=== PATIENT | female | born 1960 | race Caucasian/White ===

== ENCOUNTER 2020-05-07 13:30 | Outpatient (REF) | payer OTHER, SELFPAY ==
--- NOTE | 2020-05-07 13:38 | CT_ITS ---
EXAMINATION: CT SINUS WITHOUT CONTRAST CLINICAL INFORMATION: Chronic rhinitis. COMPARISON: None TECHNIQUE: 1.5 mm thin axial and reformatted 1.5 mm thin sagittal and coronal images of sinuses were obtained without contrast. This CT examination was performed using dose optimization techniques as appropriate, variously including the following: *Automated exposure control *Adjustment of mA and/or kV according to patient size (this includes techniques or standardized protocols for targeted exams where dose is matched to indication/reason for exam; i.e. extremities or head) *Use of iterative reconstruction technique DLP: 151 mGy-cm FINDINGS: FRONTAL SINUSES AND DRAINAGE PATHWAYS: Normal. MAXILLARY SINUSES AND DRAINAGE PATHWAYS: There is moderate opacification of small but entire left maxillary sinus from mucoperiosteal thickening. The ostiomeatal complex is partially obstructed. Mild mucoperiosteal thickening right maxillary sinus seen. The right ostiomeatal complex is widely patent. ETHMOID SINUSES: Normal. The ethmoid roofs are symmetric, with olfactory fossa depth of 0.2 cm on the right and 0.3 cm on the left. SPHENOID SINUSES AND DRAINAGE PATHWAYS: There is a small polyp or retention cyst right sphenoid sinus. The left sphenoid sinuses are well aerated. The drainage pathways are widely patent. The carotid canals are covered by bone. NASAL CAVITY/NASOPHARYNX: The nasal cavity is clear. There is mild nasal septal deviation/spurring to the left. The nasopharynx is symmetric. ADDITIONAL RELEVANT FINDINGS: No periapical disease is seen. The TMJs articulate normally. The orbits and skull base soft tissues are unremarkable. The middle ear cavities and mastoid air cells are clear. Limited evaluation demonstrates no acute intracranial findings. CT/CT sinus wo con IMPRESSION: Moderate opacification of small left maxillary sinus. Mild opacification of right maxillary sinus. There is a small polyp or retention cyst right sphenoid sinus. Mild deviation of the nasal septum to the left.
== END 2020-05-07 13:31 | disposition home or self-care (01) ==
LOC: HO.CT 13:30
PROVIDERS: PCP Internal Medicine; Visit Provider Internal Medicine
DX: J31.0 Chronic rhinitis (principal)
CPT/HCPCS: 70486

== ENCOUNTER 2020-08-26 09:55 | Outpatient (REF) | payer OTHER, SELFPAY ==
[2020-08-26 10:53] LABS: COVID-19 Test Negative (Negative)
== END 2020-08-26 09:56 | disposition home or self-care (01) ==
LOC: HO.LAB 09:55
PROVIDERS: Visit Provider Internal Medicine
DX: Z20.822 Contact with and (suspected) exposure to COVID-19 (principal)
CPT/HCPCS: 36415; 87635; C9803

== ENCOUNTER 2020-09-12 14:53 | Outpatient (REF) | payer OTHER, SELFPAY ==
[2020-09-12 15:46] LABS: MANUAL DIFF FLAG NO
[2020-09-12 15:55] LABS: Basophils Absolute Auto 0.1 X10*3/uL (0.0-0.2); Basophils Percent Auto 0.8 % (0-2); Eosinophils Absolute Auto 0.4 X10*3/uL (0.0-0.4); Eosinophils Percent Auto 4.1 % (0-4); Hematocrit 45.3 % (37-47); Hemoglobin 14.8 g/dl (12.0-16.0); Imm Gran Abs Auto 0.02 X10*3/uL (0.00-0.03); Imm Gran Pct Auto 0.2 % (0.0-0.4); Lymphocytes Absolute Auto 3.9 X10*3/uL (1.2-4.9); Mean Corpuscular HGB Conc 32.7 g/dl (31.0-35.0); Mean Corpuscular Hemoglobin 29.7 pg (27.0-33.0); Mean Platelet Volume 9.6 fL (9.4-12.3); Monocytes Absolute Auto 0.7 X10*3/uL (0.1-1.2); Monocytes Percent Auto 8.1 % (2-11); Neutrophils Percent Auto 43.8 % (45-73); Platelet Count 322 X10*3/uL (160-400); Red Blood Count 4.98 X10*6/uL (4.20-5.50); Red Cell Distribution Width 12.5 % (11.0-16.0)
[2020-09-12 16:20] LABS: Alanine Aminotransferase 25 U/L (0-31); Albumin Level 4.5 g/dL (3.5-5.0); Alkaline Phosphatase 59 U/L (39-117); Amylase 28 U/L (28-100); Anion Gap 14 (12-20); Aspartate Amino Transferase 20 U/L (5-31); Bilirubin Total 0.4 mg/dL (0.0-1.0); Blood Urea Nitrogen 16 mg/dL (9-16); Calcium 9.4 mg/dL (8.4-10.2); Carbon Dioxide 26 mmol/L (22-29); Chloride 103 mmol/L (96-108); Estimated Glomerular Filt Rate > 60; Glucose Random 91 mg/dL (60-115); Lipase 29 U/L (8-78); Potassium 4.2 mmol/L (3.3-5.1); Sodium 139 mmol/L (135-145); Total Protein 8.3 g/dL (6.5-8.0)
[2020-09-12 16:39] LABS: TSH reflex Free T4 1.29 uIU/mL (0.32-4.0)
== END 2020-09-12 14:54 | disposition home or self-care (01) ==
LOC: HO.LAB 14:53
PROVIDERS: PCP Internal Medicine; Visit Provider Nurse Practitioner Family
DX: R10.30 Lower abdominal pain, unspecified (principal); R14.0 Abdominal distension (gaseous)
CPT/HCPCS: 36415; 80053; 82150; 83690; 84443; 85025

== ENCOUNTER 2020-09-13 14:34 | Outpatient (REF) | payer OTHER, SELFPAY ==
--- NOTE | ~2020-09-13 | XR_ITS ---
EXAMINATION: XR ABDOMEN KUB CLINICAL INDICATION: Lower abdominal pain COMPARISON: None TECHNIQUE: Two views of the abdomen. FINDINGS: The bowel gas pattern is normal with no evidence of ileus or obstruction. Small pelvic calcifications, probable phleboliths. Lung bases are clear. No acute osseous abnormality. The bones are unremarkable. XR/XR KUB IMPRESSION: Nonobstructive bowel gas pattern.
== END 2020-09-13 14:35 | disposition home or self-care (01) ==
LOC: HO.HMGCX 14:34
PROVIDERS: PCP Internal Medicine; Visit Provider Hospitalist
DX: R10.30 Lower abdominal pain, unspecified (principal)
CPT/HCPCS: 74018

== ENCOUNTER 2020-09-17 08:55 | Outpatient (REF) | payer OTHER, SELFPAY | END 2020-09-17 08:56 | disposition home or self-care (01) | LOC: HO.CT 08:55 | PROVIDERS: Visit Provider Nurse Practitioner Family | DX: Z13.89 Encounter for screening for other disorder (principal) ==

== ENCOUNTER 2021-01-01 14:53 | Outpatient (REF) | payer OTHER, SELFPAY ==
[2021-01-01 16:30] LABS: MANUAL DIFF FLAG NO
[2021-01-01 16:37] LABS: Basophils Absolute Auto 0.1 X10*3/uL (0.0-0.2); Basophils Percent Auto 0.8 % (0-2); Eosinophils Absolute Auto 0.3 X10*3/uL (0.0-0.4); Eosinophils Percent Auto 3.6 % (0-4); Hematocrit 43.1 % (37-47); Hemoglobin 14.1 g/dl (12.0-16.0); Imm Gran Abs Auto 0.03 X10*3/uL (0.00-0.03); Imm Gran Pct Auto 0.3 % (0.0-0.4); Lymphocytes Percent Auto 34.1 % (20-40); Mean Corpuscular HGB Conc 32.7 g/dl (31.0-35.0); Mean Corpuscular Hemoglobin 29.6 pg (27.0-33.0); Mean Corpuscular Volume 90.4 fL (80-98); Mean Platelet Volume 9.8 fL (9.4-12.3); Monocytes Absolute Auto 0.7 X10*3/uL (0.1-1.2); Monocytes Percent Auto 7.6 % (2-11); Neutrophils Absolute Auto 4.7 X10*3/uL (2.0-8.3); Neutrophils Percent Auto 53.6 % (45-73); Platelet Count 323 X10*3/uL (160-400); Red Blood Count 4.77 X10*6/uL (4.20-5.50); Red Cell Distribution Width 12.7 % (11.0-16.0); White Blood Count 8.8 X10*3/uL (4.8-10.8)
[2021-01-01 16:40] LABS: Glucose Urine UA NEG (NEG); Leukocyte Esterase Urine NEG (NEG); Nitrite Urine NEG (NEG); Specific Gravity - Urine 1.015 (1.005-1.025); Urine Blood 1+ (NEG); Urine Ketones NEG (NEG); Urine Protein NEG (NEG-TRACE)
[2021-01-01 16:44] LABS: Appearance Urine CLEAR; Color Urine YELLOW
[2021-01-01 16:55] LABS: Bacteria Urine 1+ /LPF; Squamous Epithelial Cell Urine 3+ /LPF; WBC Urine 0-2 /HPF (0-4)
[2021-01-01 16:58] LABS: Estimated Average Glucose 108 mg/dL; Hemoglobin A1c % 5.4 %
[2021-01-01 17:00] LABS: Alanine Aminotransferase 22 U/L (0-31); Albumin Level 4.2 g/dL (3.5-5.0); Alkaline Phosphatase 54 U/L (39-117); Anion Gap 13 (12-20); Aspartate Amino Transferase 18 U/L (5-31); Bilirubin Total 0.4 mg/dL (0.0-1.0); Blood Urea Nitrogen 15 mg/dL (9-16); Calcium 9.2 mg/dL (8.4-10.2); Carbon Dioxide 26 mmol/L (22-29); Chloride 105 mmol/L (96-108); Cholesterol 205 mg/dL; Estimated Glomerular Filt Rate > 60; Glucose Random 107 mg/dL (60-115); HDL Cholesterol 52 mg/dL; Iron 66 mcg/dL (30-160); LDL Cholesterol Calculated 121 mg/dl; Percent Iron Saturation 22 % (15-50); Potassium 4.1 mmol/L (3.3-5.1); Sodium 140 mmol/L (135-145); Total Iron Binding Capacity 303 mcg/dL (228-428); Total Protein 7.5 g/dL (6.5-8.0); Triglycerides 161 mg/dL; Unsaturated Iron Binding 237 ug/dL
[2021-01-01 17:21] LABS: Ferritin 157 ng/mL (10-250); Free T4 (Free Thyroxine) 1.02 ng/dL (0.71-1.85); Thyroid Stimulating Hormone 1.63 uIU/mL (0.32-4.0); Vitamin D 25-OH Total 72.5 ng/mL (>30)
[2021-01-01 18:34] LABS: Folate > 20.0 ng/mL (> or = 4.0); Vitamin B12 977 pg/mL (200-900)
[2021-01-02 17:56] LABS: Triiodothyronine T3 Free 3.4 pg/mL (2.3-4.2)
== END 2021-01-01 14:54 | disposition home or self-care (01) ==
LOC: HO.HMGCLDS 14:53
PROVIDERS: PCP Internal Medicine; Visit Provider Internal Medicine
DX: Z13.89 Encounter for screening for other disorder (principal)
CPT/HCPCS: 36415; 80053; 80061; 81001; 82306; 82607; 82728; 82746; 83036; 83540; 84439; 84443; 84481; 85025

== ENCOUNTER 2021-04-08 13:55 | Outpatient (REF) | payer OTHER, SELFPAY ==
[2021-04-08 15:26] LABS: Influenza A PCR NEGATIVE (Negative); Influenza B PCR NEGATIVE (Negative); Resp Syncy Virus RNA Qual PCR NEGATIVE (Negative); SARS COV2 PCR INHOUSE NEGATIVE (Negative)
== END 2021-04-08 13:56 | disposition home or self-care (01) ==
LOC: HO.LNP 13:55
PROVIDERS: Visit Provider Internal Medicine
DX: Z20.822 Contact with and (suspected) exposure to COVID-19 (principal); R43.9 Unspecified disturbances of smell and taste
CPT/HCPCS: 0241U

== ENCOUNTER 2021-05-22 08:55 | Outpatient (REF) | payer OTHER, SELFPAY ==
[2021-05-22 09:16] LABS: MANUAL DIFF FLAG NO
[2021-05-22 10:00] LABS: Basophils Absolute Auto 0.1 X10*3/uL (0.0-0.2); Basophils Percent Auto 0.9 % (0-2); Eosinophils Absolute Auto 0.3 X10*3/uL (0.0-0.4); Eosinophils Percent Auto 4.4 % (0-4); Hematocrit 44.8 % (37.0-47.0); Hemoglobin 14.7 g/dl (12.0-16.0); Imm Gran Abs Auto 0.02 X10*3/uL (0.00-0.03); Imm Gran Pct Auto 0.3 % (0.0-0.4); Lymphocytes Percent Auto 39.4 % (20-40); Mean Corpuscular HGB Conc 32.8 g/dl (31.0-35.0); Mean Corpuscular Hemoglobin 29.6 pg (27.0-33.0); Mean Corpuscular Volume 90.3 fL (80.0-98.0); Mean Platelet Volume 9.4 fL (9.4-12.3); Monocytes Absolute Auto 0.6 X10*3/uL (0.1-1.2); Monocytes Percent Auto 7.6 % (2-11); Neutrophils Absolute Auto 3.6 x10*3/uL (2.0-8.3); Neutrophils Percent Auto 47.4 % (45-73); Platelet Count 310 X10*3/uL (160-400); Red Blood Count 4.96 X10*6/uL (4.20-5.50); Red Cell Distribution Width 12.8 % (11.0-16.0); White Blood Count 7.5 X10*3/uL (4.8-10.8)
[2021-05-22 10:24] LABS: Alanine Aminotransferase 35 U/L (0-31); Albumin Level 4.4 g/dL (3.5-5.0); Alkaline Phosphatase 54 U/L (39-117); Anion Gap 12 (12-20); Aspartate Amino Transferase 19 U/L (5-31); Bilirubin Total 0.6 mg/dL (0.0-1.0); Blood Urea Nitrogen 17 mg/dL (9-16); Calcium 9.6 mg/dL (8.4-10.2); Carbon Dioxide 29 mmol/L (22-29); Chloride 103 mmol/L (96-108); Cholesterol 249 mg/dL; Estimated Glomerular Filt Rate > 60; Glucose Random 99 mg/dL (60-115); HDL Cholesterol 57 mg/dL; LDL Cholesterol Calculated 169 mg/dl; Potassium 4.6 mmol/L (3.3-5.1); Sodium 139 mmol/L (135-145); Triglycerides 118 mg/dL
[2021-05-22 10:48] LABS: Free T4 (Free Thyroxine) 0.99 ng/dL (0.71-1.85); Thyroid Stimulating Hormone 1.62 uIU/mL (0.32-4.0); Vitamin D 25-OH Total 41.7 ng/mL (>30)
[2021-05-22 10:55] LABS: Appearance Urine CLEAR; Color Urine YELLOW; Glucose Urine UA NEG (NEG); Leukocyte Esterase Urine NEG (NEG); Nitrite Urine NEG (NEG); PH 6.5 (5.0-8.0); Urine Blood NEG (NEG); Urine Ketones NEG (NEG); Urine Protein NEG (NEG-TRACE)
== END 2021-05-22 08:56 | disposition home or self-care (01) ==
LOC: HO.LAB 08:55
PROVIDERS: PCP Internal Medicine; Visit Provider Internal Medicine
DX: Z00.00 Encounter for general adult medical examination without abnormal findings (principal); K21.9 Gastro-esophageal reflux disease without esophagitis; I10 Essential (primary) hypertension
CPT/HCPCS: 36415; 80053; 80061; 81003; 82306; 84439; 84443; 85025

== ENCOUNTER 2021-09-13 13:22 | Outpatient (REF) | payer OTHER, SELFPAY ==
[2021-09-13 14:28] LABS: Influenza A PCR NEGATIVE (Negative); Influenza B PCR NEGATIVE (Negative); Resp Syncy Virus RNA Qual PCR NEGATIVE (Negative); SARS COV2 PCR INHOUSE NEGATIVE (Negative)
== END 2021-09-13 13:23 | disposition home or self-care (01) ==
LOC: HO.LNP 13:22
PROVIDERS: Visit Provider Physician Assistant
DX: Z20.822 Contact with and (suspected) exposure to COVID-19 (principal); B34.9 Viral infection, unspecified
CPT/HCPCS: 0241U

== ENCOUNTER 2021-12-20 11:05 | Outpatient (REF) | payer OTHER, SELFPAY ==
--- NOTE | ~2021-12-20 | XR_ITS ---
EXAMINATION: XR KNEE, LEFT CLINICAL INFORMATION: Pain COMPARISON: None TECHNIQUE: Four views of the left knee. FINDINGS: Bones and soft tissues are normal. No fracture or joint effusion. Alignment is anatomic. Joint spaces are well maintained. No abnormal soft tissue calcification. XR/XR knee LT 4V IMPRESSION: No significant osseous changes to explain patient's pain symptoms, MRI could be utilized to assess for soft tissue derangements if clinically indicated.
== END 2021-12-20 11:06 | disposition home or self-care (01) ==
LOC: HO.HMGCX 11:05
PROVIDERS: PCP Internal Medicine; Visit Provider Physician Assistant
DX: M25.561 Pain in right knee (principal)
CPT/HCPCS: 73564

== ENCOUNTER 2022-02-20 09:08 | Outpatient (REF) | payer OTHER, SELFPAY ==
[2022-02-20 09:26] LABS: MANUAL DIFF FLAG NO
[2022-02-20 09:52] LABS: Basophils Absolute Auto 0.1 X10*3/uL (0.0-0.2); Eosinophils Absolute Auto 0.7 X10*3/uL (0.0-0.4); Eosinophils Percent Auto 8.8 % (0-4); Hematocrit 46.3 % (37.0-47.0); Hemoglobin 15.1 g/dl (12.0-16.0); Imm Gran Abs Auto 0.03 X10*3/uL (0.00-0.03); Imm Gran Pct Auto 0.4 % (0.0-0.4); Lymphocytes Absolute Auto 2.9 X10*3/uL (1.2-4.9); Lymphocytes Percent Auto 35.5 % (20-40); Mean Corpuscular HGB Conc 32.6 g/dl (31.0-35.0); Mean Corpuscular Hemoglobin 29.1 pg (27.0-33.0); Mean Corpuscular Volume 89.2 fL (80.0-98.0); Mean Platelet Volume 9.4 fL (9.4-12.3); Monocytes Absolute Auto 0.6 X10*3/uL (0.1-1.2); Neutrophils Absolute Auto 3.8 x10*3/uL (2.0-8.3); Neutrophils Percent Auto 47.3 % (45-73); Platelet Count 280 X10*3/uL (160-400); Red Blood Count 5.19 X10*6/uL (4.20-5.50); Red Cell Distribution Width 12.6 % (11.0-16.0); White Blood Count 8.1 X10*3/uL (4.8-10.8)
[2022-02-20 10:30] LABS: Alanine Aminotransferase 24 U/L (0-31); Albumin Level 4.6 g/dL (3.5-5.0); Alkaline Phosphatase 57 U/L (39-117); Anion Gap 13 (12-20); Aspartate Amino Transferase 17 U/L (5-31); Bilirubin Total 0.5 mg/dL (0.0-1.0); Blood Urea Nitrogen 16 mg/dL (9-16); Calcium 9.3 mg/dL (8.4-10.2); Carbon Dioxide 27 mmol/L (22-29); Chloride 104 mmol/L (96-108); Cholesterol 223 mg/dL; Estimated Glomerular Filt Rate > 60; Glucose Fasting 102 mg/dL (60-99); HDL Cholesterol 58 mg/dL; LDL Cholesterol Calculated 150 mg/dl; Potassium 4.4 mmol/L (3.3-5.1); Sodium 140 mmol/L (135-145); Total Protein 8.1 g/dL (6.5-8.0); Triglycerides 78 mg/dL
[2022-02-20 10:45] LABS: Free T4 (Free Thyroxine) 1.11 ng/dL (0.71-1.85)
[2022-02-20 11:12] LABS: Folate 19.7 ng/mL (> or = 4.0); Vitamin B12 917 pg/mL (200-900)
== END 2022-02-20 09:09 | disposition home or self-care (01) ==
LOC: HO.LAB 09:08
PROVIDERS: PCP Internal Medicine; Visit Provider Internal Medicine
DX: E78.00 Pure hypercholesterolemia, unspecified (principal)
CPT/HCPCS: 36415; 80053; 80061; 82607; 82746; 84439; 85025

== ENCOUNTER 2022-05-08 13:38 | Outpatient (REF) | payer OTHER, SELFPAY ==
[2022-05-12 12:04] LABS: Influenza A PCR NEGATIVE (Negative); Influenza B PCR NEGATIVE (Negative); Resp Syncy Virus RNA Qual PCR NEGATIVE (Negative); SARS COV2 PCR INHOUSE NEGATIVE (Negative)
== END 2022-05-08 13:39 | disposition home or self-care (01) ==
LOC: HO.LNP 13:38
PROVIDERS: Visit Provider Family Medicine
DX: Z20.822 Contact with and (suspected) exposure to COVID-19 (principal)
CPT/HCPCS: 0241U

== ENCOUNTER 2022-07-16 14:34 | Outpatient (REF) | payer OTHER, SELFPAY ==
[2022-07-17 13:07] LABS: Influenza A PCR NEGATIVE (Negative); Influenza B PCR NEGATIVE (Negative); Resp Syncy Virus RNA Qual PCR NEGATIVE (Negative); SARS COV2 PCR INHOUSE NEGATIVE (Negative)
== END 2022-07-16 14:35 | disposition home or self-care (01) ==
LOC: HO.LAB 14:34
PROVIDERS: Visit Provider Nurse Practitioner Family
DX: J02.0 Streptococcal pharyngitis (principal); Z20.822 Contact with and (suspected) exposure to COVID-19
CPT/HCPCS: 0241U

== ENCOUNTER 2022-07-22 10:06 | Outpatient (REF) | payer OTHER, SELFPAY ==
[2022-07-22 10:52] LABS: MANUAL DIFF FLAG NO
[2022-07-22 11:12] LABS: Estimated Average Glucose 120 mg/dL; Hemoglobin A1C 148.4303 umol/L; Hemoglobin A1c % 5.8 %
[2022-07-22 11:15] LABS: Basophils Absolute Auto 0.1 X10*3/uL (0.0-0.2); Basophils Percent Auto 1.2 % (0-2); Eosinophils Absolute Auto 0.3 X10*3/uL (0.0-0.4); Eosinophils Percent Auto 4.5 % (0-4); Hematocrit 44.4 % (37.0-47.0); Hemoglobin 14.7 g/dl (12.0-16.0); Imm Gran Abs Auto 0.02 X10*3/uL (0.00-0.03); Imm Gran Pct Auto 0.3 % (0.0-0.4); Lymphocytes Absolute Auto 2.9 X10*3/uL (1.2-4.9); Lymphocytes Percent Auto 42.9 % (20-40); Mean Corpuscular HGB Conc 33.1 g/dl (31.0-35.0); Mean Corpuscular Hemoglobin 29.9 pg (27.0-33.0); Mean Corpuscular Volume 90.2 fL (80.0-98.0); Mean Platelet Volume 9.5 fL (9.4-12.3); Monocytes Absolute Auto 0.5 X10*3/uL (0.1-1.2); Monocytes Percent Auto 6.7 % (2-11); Neutrophils Percent Auto 44.4 % (45-73); Platelet Count 301 X10*3/uL (160-400); Red Blood Count 4.92 X10*6/uL (4.20-5.50); Red Cell Distribution Width 12.5 % (11.0-16.0); White Blood Count 6.7 X10*3/uL (4.8-10.8)
[2022-07-22 11:57] LABS: Alanine Aminotransferase 26 U/L (0-31); Albumin Level 4.1 g/dL (3.5-5.0); Alkaline Phosphatase 59 U/L (39-117); Anion Gap 10 (12-20); Aspartate Amino Transferase 17 U/L (5-31); Bilirubin Total 0.5 mg/dL (0.0-1.0); Blood Urea Nitrogen 16 mg/dL (9-16); Calcium 9.4 mg/dL (8.4-10.2); Carbon Dioxide 27 mmol/L (22-29); Chloride 107 mmol/L (96-108); Cholesterol 219 mg/dL; Estimated Glomerular Filt Rate > 60; Glucose Fasting 99 mg/dL (60-99); HDL Cholesterol 51 mg/dL; LDL Cholesterol Calculated 153 mg/dl; Potassium 4.4 mmol/L (3.3-5.1); Sodium 140 mmol/L (135-145); Total Protein 7.2 g/dL (6.5-8.0); Triglycerides 78 mg/dL; Vitamin D 25-OH Total 40.4 ng/mL (>30)
== END 2022-07-22 10:07 | disposition home or self-care (01) ==
LOC: HO.10HDL 10:06
PROVIDERS: Visit Provider Internal Medicine
DX: Z00.00 Encounter for general adult medical examination without abnormal findings (principal)
CPT/HCPCS: 36415; 80053; 80061; 82306; 83036; 85025

== ENCOUNTER 2022-07-22 10:32 | Outpatient (REF) | payer OTHER, SELFPAY ==
--- NOTE | ~2022-07-22 | XR_ITS ---
EXAMINATION: XR CHEST CLINICAL INFORMATION: Annual checkup COMPARISON: Chest 06/20/2019 TECHNIQUE: 2 views of the chest were obtained. FINDINGS: No significant abnormality is noted involving the heart, lungs, mediastinum, bony thorax or soft tissues. XR/XR chest 2V IMPRESSION: Unremarkable chest examination.
== END 2022-07-22 10:33 | disposition home or self-care (01) ==
LOC: HO.XRAY 10:32
PROVIDERS: PCP Internal Medicine; Visit Provider Internal Medicine
DX: Z00.00 Encounter for general adult medical examination without abnormal findings (principal)
CPT/HCPCS: 71046

== ENCOUNTER 2022-09-30 12:17 | Outpatient (REF) | payer OTHER, SELFPAY ==
--- NOTE | ~2022-09-30 | US_ITS ---
EXAMINATION: US VENOUS ULTRASOUND WITH DOPPLER LOWER EXTREMITY, BILATERAL CLINICAL INFORMATION: Pain and swelling COMPARISON: None available. TECHNIQUE: Ultrasound of the deep veins is performed from the hip to the calf with compression sonography and color and pulse Doppler assessment. Spectral analysis with color-flow imaging is performed. FINDINGS: RIGHT: There is normal venous compression and respiratory variation and augmented flow. The visualized common femoral vein, superficial femoral vein, profunda femoral vein, popliteal vein, and the trifurcation region shows no evidence of deep venous thrombosis. There is no significant popliteal fossa cyst. LEFT: There is normal venous compression and respiratory variation and augmented flow. The visualized common femoral vein, superficial femoral vein, profunda femoral vein, popliteal vein, and the trifurcation region shows no evidence of deep venous thrombosis. There is no significant popliteal fossa cyst. US/US venous duplex LE BI IMPRESSION: No DVT demonstrated in the bilateral lower extremity.
[2022-09-30 13:53] LABS: MANUAL DIFF FLAG NO
[2022-09-30 14:15] LABS: Basophils Absolute Auto 0.1 X10*3/uL (0.0-0.2); Basophils Percent Auto 1.2 % (0-2); Eosinophils Absolute Auto 0.2 X10*3/uL (0.0-0.4); Eosinophils Percent Auto 3.3 % (0-4); Hematocrit 46.4 % (37.0-47.0); Hemoglobin 15.1 g/dl (12.0-16.0); Imm Gran Abs Auto 0.01 X10*3/uL (0.00-0.03); Imm Gran Pct Auto 0.1 % (0.0-0.4); Lymphocytes Absolute Auto 2.5 X10*3/uL (1.2-4.9); Lymphocytes Percent Auto 35.7 % (20-40); Mean Corpuscular HGB Conc 32.5 g/dl (31.0-35.0); Mean Corpuscular Hemoglobin 29.2 pg (27.0-33.0); Mean Corpuscular Volume 89.7 fL (80.0-98.0); Mean Platelet Volume 9.5 fL (9.4-12.3); Monocytes Absolute Auto 0.4 X10*3/uL (0.1-1.2); Monocytes Percent Auto 5.8 % (2-11); Neutrophils Absolute Auto 3.7 x10*3/uL (2.0-8.3); Neutrophils Percent Auto 53.9 % (45-73); Platelet Count 331 X10*3/uL (160-400); Red Blood Count 5.17 X10*6/uL (4.20-5.50); Red Cell Distribution Width 12.9 % (11.0-16.0); White Blood Count 6.9 X10*3/uL (4.8-10.8)
[2022-09-30 14:35] LABS: Alanine Aminotransferase 31 U/L (0-31); Albumin Level 4.5 g/dL (3.5-5.0); Alkaline Phosphatase 61 U/L (39-117); Anion Gap 11 (12-20); Aspartate Amino Transferase 21 U/L (5-31); Bilirubin Total 0.6 mg/dL (0.0-1.0); Blood Urea Nitrogen 14 mg/dL (9-16); Calcium 9.9 mg/dL (8.4-10.2); Carbon Dioxide 27 mmol/L (22-29); Chloride 106 mmol/L (96-108); Estimated Glomerular Filt Rate > 60; Glucose Random 102 mg/dL (60-115); INTERNATIONAL NORM RATIO 0.9 (0.9-1.1); Potassium 4.2 mmol/L (3.3-5.1); Prothrombin Time 10.6 SEC (10.0-13.1); Sodium 140 mmol/L (135-145)
[2022-09-30 14:55] LABS: Erythrocyte Sedimentation Rate 11 MM/HR (0-20)
[2022-09-30 15:23] LABS: B Type Natriuretic Peptide < 10 pg/mL (<100)
[2022-10-02 22:57] LABS: CRP High Sensitivity 4.2 mg/L
== END 2022-09-30 12:18 | disposition home or self-care (01) ==
LOC: HO.HMGCLDS 12:17
PROVIDERS: PCP Internal Medicine; Visit Provider Physician Assistant
DX: R23.3 Spontaneous ecchymoses (principal); R60.0 Localized edema
CPT/HCPCS: 36415; 80053; 83880; 85025; 85610; 85652; 86141; 93970

== ENCOUNTER 2022-09-30 12:50 | Outpatient (REF) | payer OTHER, SELFPAY | END 2022-09-30 12:51 | disposition home or self-care (01) | LOC: HO.HMGCX 12:50 | PROVIDERS: PCP Internal Medicine; Visit Provider Physician Assistant | DX: Z13.89 Encounter for screening for other disorder (principal) ==

== ENCOUNTER 2023-03-23 10:49 | Outpatient (AMB) | payer OTHER, SELFPAY ==
--- NOTE | 2023-03-23 10:50 | MHC.OFFWIV ---
Intake Vital Signs 03/23/23 10:51 Height 5 ft 3 in Weight 215 lb 4 oz BMI 38.1 BP 130/88 Blood Pressure Location Lt brachial Position Sitting Pulse 88 Pulse Source Pulse Oximeter Temp 98.1 F Temp Source Oral Pulse Oximetry (%) 97 Oxygen Delivery Method Room Air Intake Visit Reasons: EST/left side flank pain (lobby) Intake Note: pt is here left side flank for the past 2 weeks no pain with urination but she feels bloated Patient Tobacco Use Status: Never used Tobacco Allergies metronidazole [Flagyl] Allergy (Unknown, Verified 03/23/23 10:54) Hives polyethylene glycol Allergy (Unknown, Verified 03/23/23 11:26) Unknown Quinolones Allergy (Unknown, Verified 03/23/23 10:54) Muscle cramps HPI HPI Comments History of Present Illness Details 62-year-old female in today for a sick visit. Patient states for the past 2 weeks she has been experiencing left lower quadrant bloating, discomfort, looser stools than what she normally has. Patient denies seeing blood in stool. she states that she drinks alcohol on the weekend and does not use NSAIDs often. Has history of diverticulitis. Patient also reports some discomfort in her left lower back, which has occasionally woken her from sleep at night. denies trauma or overuse to left lower back. No tingling or numbness. No recent fevers Patient has pain to palpation on the left lower quadrant. No pain in the right lower quadrant, right upper quadrant or epigastric area. urine screen in office was negative. patient also has some point tenderness to the left SI joint. Negative straight leg test. No tingling or numbness. Patient able to ambulate as baseline. Patient is likely to have GERD. Unlikely to have diverticulitis, pancreatitis, appendicitis, or any obstructive uropathy. Patient was offered treatment with Protonix, she declined. States she does not like to use medication as an intervention. Will order lab draws CBC, ESR, amylase, lipase, and basic metabolic profile. Will follow up with lab results. patient educated on foods to avoid that could potentially upset her stomach including alcohol, acidic, fatty foods. Patient educated on signs of worsening symptoms and when to return to the walk-in or to present to the emergency room. [facility] Social History Patient Tobacco Use Status: Never used Tobacco Review of Systems Const All systems reviewed & are unremarkable except as noted in HPI and below GI Reports abdominal pain, Denies melena, Reports bloating, Denies hematochezia, Reports change in stool character and Reports loose stools Details: No pain with urination Musc Reports as per HPI, Denies numbness and Denies tingling Neuro Denies numbness and Denies tingling Physical Exam Vital Signs: Last Vital Signs Temp 98.1 F 03/23/23 10:51 Pulse 88 03/23/23 10:51 BP 130/88 03/23/23 10:51 Pulse Ox 97 03/23/23 10:51 Oxygen Delivery Method Room Air 03/23/23 10:51 BMI result Body Mass Index 38.1 vital signs are reviewed and stable Const General: cooperative, healthy appearing and no acute distress Orientation/consciousness: patient oriented x3 Limitations: no limitations HEENT Head: Yes normocephalic GI Inspection: Yes normal to inspection Palpation (GI): Tenderness to palpation present (GI) in the LLQ and in the LUQ General: Yes no CVA tenderness Back/Spine/Pelvis Back: no CVA tenderness Sacroiliac joints: on the left tender to palpation Neuro General: patient oriented x3 Gait exam (Neuro): Normal gait present Results AMB Urinalysis, Automated UA Leukoctes 0 Shellie/uL Last Edit by Deann Fraser CMA on 03/23/23 11:09 UA Nitrite Negative Last Edit by Deann Fraser CMA on 03/23/23 11:09 UA Urobilinogen 0.2 mg/dL Last Edit by Deann Fraser CMA on 03/23/23 11:09 UA Protein 0 mg/dL Last Edit by Deann Fraser CMA on 03/23/23 11:09 UA pH 7.0 Last Edit by Deann Fraser CMA on 03/23/23 11:09 UA Blood 0 Asif/uL Last Edit by Deann Fraser CMA on 03/23/23 11:09 UA Specific Elfrida 1.015 Last Edit by Deann Fraser CMA on 03/23/23 11:09 UA Ketone Negative Last Edit by Deann Fraser CMA on 03/23/23 11:09 UA Bilirubin 0 mg/dL Last Edit by Deann Fraser CMA on 03/23/23 11:09 UA Glucose 0 mg/dL Last Edit by Deann Fraser CMA on 03/23/23 11:09 Results Reviewed Results Reviewed: Laboratory Last Values Urine pH (Auto) 7.0 03/23/23 11:07 Specific Elfrida (Auto) 1.015 03/23/23 11:07 Urine Protein (Auto) 0 mg/dL 03/23/23 11:07 Glucose (UA)(Auto) 0 mg/dL 03/23/23 11:07 Urine Ketones (Auto) Negative 03/23/23 11:07 Urine Blood (Auto) 0 Asif/uL 03/23/23 11:07 Urine Nitrite (Auto) Negative 03/23/23 11:07 Urine Bilirubin (Auto) 0 mg/dL 03/23/23 11:07 Urine Urobilinogen (Auto) 0.2 mg/dL 03/23/23 11:07 Leukocyte Esterase (Auto) 0 Shellie/uL 03/23/23 11:07 Assessment & Plan Assessment & Plan (1) Lower abdominal pain: Comment: patient was offered Protonix but declined. Patient will get labs drawn, Bhavesh diet over the next 2 weeks which will include fasting from alcohol, the fried foods. Patient has been educated on signs of worsening symptoms and when to return to the walk-in clinic And when to present to the emergency room. Patient instructed to follow-up with PCP. Will follow up with critical results necessary if Code(s): R10.30 - Lower abdominal pain, unspecified (2) Bloating: Code(s): R14.0 - Abdominal distension (gaseous) Orders: Orders Complete Blood Count Auto Diff Today R10.30 - Lower abdominal pain, unspecified Zaheer A Amy, [employer] Basic Metabolic Panel Today R10.30 - Lower abdominal pain, unspecified Zaheer A Amy, [employer] Amylase Today R10.30 - Lower abdominal pain, unspecified Zaheer A Amy, [employer] AMB Urinalysis Automated Today R14.0 - Abdominal distension (gaseous) Jose Moore MD XR chest 2V Today R05.9 - Cough, unspecified Jose Moore MD Lipase Today R10.30 - Lower abdominal pain, unspecified JENNA Coelho Erythrocyte Sedimentation Rate Today R10.30 - Lower abdominal pain, unspecified JENNA Coelho Coding Level of Care Code Est Pt Level 3 (80684) Diagnoses Lower abdominal pain R10.30 Bloating R14.0 Time Spent (min) 20
[2023-03-23 10:51] VITALS: BP 130/88; PULSE 88; TEMP 36.7; O2SAT 97; BMI 38.1
== END 2023-03-23 11:55 | disposition home or self-care (01) ==
PROVIDERS: PCP Internal Medicine; Visit Provider Nurse Practitioner Primary Care
DX: R10.30 Lower abdominal pain, unspecified (principal); R14.0 Abdominal distension (gaseous)
CPT/HCPCS: 81003; 99213

== ENCOUNTER 2023-03-23 11:38 | Outpatient (REF) | payer OTHER, SELFPAY ==
[2023-03-23 13:30] LABS: MANUAL DIFF FLAG NO
[2023-03-23 13:40] LABS: Basophils Absolute Auto 0.1 X10*3/uL (0.0-0.2); Basophils Percent Auto 0.9 % (0-2); Eosinophils Absolute Auto 0.3 X10*3/uL (0.0-0.4); Eosinophils Percent Auto 3.6 % (0-4); Hematocrit 44.7 % (37.0-47.0); Hemoglobin 14.7 g/dl (12.0-16.0); Imm Gran Abs Auto 0.02 X10*3/uL (0.00-0.03); Imm Gran Pct Auto 0.3 % (0.0-0.4); Lymphocytes Absolute Auto 2.7 X10*3/uL (1.2-4.9); Lymphocytes Percent Auto 39.3 % (20-40); Mean Corpuscular HGB Conc 32.9 g/dl (31.0-35.0); Mean Corpuscular Hemoglobin 29.5 pg (27.0-33.0); Mean Corpuscular Volume 89.8 fL (80.0-98.0); Mean Platelet Volume 9.7 fL (9.4-12.3); Monocytes Absolute Auto 0.5 X10*3/uL (0.1-1.2); Monocytes Percent Auto 6.9 % (2-11); Neutrophils Absolute Auto 3.4 x10*3/uL (2.0-8.3); Platelet Count 325 X10*3/uL (160-400); Red Blood Count 4.98 X10*6/uL (4.20-5.50)
[2023-03-23 14:07] LABS: Amylase 20 U/L (28-100); Anion Gap 11 (12-20); Blood Urea Nitrogen 13 mg/dL (9-16); Calcium 9.4 mg/dL (8.4-10.2); Carbon Dioxide 27 mmol/L (22-29); Chloride 106 mmol/L (96-108); Estimated Glomerular Filt Rate > 60; Glucose Random 93 mg/dL (60-115); Lipase 20 U/L (8-78); Potassium 4.2 mmol/L (3.3-5.1); Sodium 140 mmol/L (135-145)
[2023-03-23 14:26] LABS: Erythrocyte Sedimentation Rate 10 MM/HR (0-20)
== END 2023-03-23 11:39 | disposition home or self-care (01) ==
LOC: HO.HMGCLDS 11:38
PROVIDERS: PCP Internal Medicine; Visit Provider Nurse Practitioner Primary Care
DX: R10.30 Lower abdominal pain, unspecified (principal)
CPT/HCPCS: 36415; 80048; 82150; 83690; 85025; 85652

== ENCOUNTER 2023-07-02 14:07 | Outpatient (AMB) | payer OTHER, SELFPAY ==
[2023-07-02 14:11] VITALS: BP 138/100; PULSE 86; TEMP 36.8; O2SAT 96; BMI 37.9
--- NOTE | 2023-07-02 14:11 | MHC.OFFWIV ---
Intake Vital Signs 07/02/23 14:11 Height 5 ft 3 in Weight 214 lb BMI 37.9 BP 138/100 H Blood Pressure Location Lt brachial Position Sitting Pulse 86 Pulse Source Pulse Oximeter Temp 98.3 F Temp Source Temporal Artery Scan Pulse Oximetry (%) 96 Oxygen Delivery Method Room Air Intake Visit Reasons: EST/chest alison(lobby masked) Intake Note: pt is here today for chest congestion started 1 week ago Patient Tobacco Use Status: Never used Tobacco Allergies metronidazole [Flagyl] Allergy (Unknown, Verified 07/02/23 14:16) Hives polyethylene glycol Allergy (Unknown, Verified 07/02/23 14:16) Unknown Quinolones Allergy (Unknown, Verified 07/02/23 14:16) Muscle cramps Do you need a note to return to daycare/school/sports/work: Yes HPI HPI Comments History of Present Illness Details 63 y/o female patient who presents to walk in clinic with c/o chest/nasal congestion x 1 week. She has been using Home remedies with some relief. She did have mild fevers 2 days ago, but since resolved. Reports productive cough with some wheezing. [facility] Social History Patient Tobacco Use Status: Never used Tobacco Review of Systems Const All systems reviewed & are unremarkable except as noted in HPI and below Physical Exam Vital Signs: Last Vital Signs Temp 98.3 F 07/02/23 14:11 Pulse 86 07/02/23 14:11 BP 138/100 H 07/02/23 14:11 Pulse Ox 96 07/02/23 14:11 Oxygen Delivery Method Room Air 07/02/23 14:11 BMI result Body Mass Index 37.9 Const General: comfortable and no acute distress HEENT Head: Yes normocephalic Ears: external ears normal and TM's normal bilaterally General nose exam: Normal nares present and Normal nasal mucous membranes and turbinates present Face and sinus: Yes sinuses nontender Mouth: moist mucous membranes Throat: Yes posterior oropharynx normal Resp Effort & Inspection: normal respiratory effort Auscultation: clear to auscultation bilaterally Cardio Rate: regular rate Rhythm: regular rhythm Results AMB Rapid Strep AMB Rapid Strep Negative Last Edit by Deann Fraser CMA on 07/02/23 14:50 Results Reviewed Results Reviewed: Laboratory Last Values Strep Scn Rapid Clinic Negative 07/02/23 14:50 Assessment & Plan Assessment & Plan (1) Acute pharyngitis: Code(s): J02.9 - Acute pharyngitis, unspecified Qualifiers: Pharyngitis/tonsillitis etiology: unspecified etiology Qualified Code(s): J02.9 - Acute pharyngitis, unspecified Plan: - OTC cold/cough remedies - Rest, warm liquids - acetaminophen for pain relief (2) Cough in adult: Code(s): R05.9 - Cough, unspecified Plan: - OTC cough remedies. Orders: Orders SARS-CoV2/FLU/RSV Today J02.9 - Acute pharyngitis, unspecified, R05.9 - Cough, unspecified AMB Rapid Strep Screen Today Z13.9 - Encounter for screening, unspecified Medications: New azithromycin 500 mg PO DAILY 3 days 3 tabs 0RF J02.9 - Acute pharyngitis, unspecified benzonatate 100 mg PO TID 30 caps 0RF R05.9 - Cough, unspecified [id number] 5-10-100 mg/5 mL (Adult Robitussin Peak Cold M-S) 10 mL PO Q4H PRN 237 mL 0RF cold symptoms R05.9 - Cough, unspecified Coding Level of Care Code Est Pt Level 3 (96595) Diagnoses Acute pharyngitis, unspecified etiology J02.9 Pharyngitis/tonsillitis etiology: unspecified etiology Cough in adult R05.9 Time Spent (min) 15
== END 2023-07-02 15:21 | disposition home or self-care (01) ==
PROVIDERS: PCP Internal Medicine; Visit Provider Nurse Practitioner Family
DX: J02.9 Acute pharyngitis, unspecified (principal); R05.9 Cough, unspecified
CPT/HCPCS: 87880; 99213

== ENCOUNTER 2023-07-02 17:01 | Outpatient (REF) | payer OTHER, SELFPAY ==
[2023-07-02 18:00] LABS: Influenza A PCR POSITIVE (Negative); Influenza B PCR NEGATIVE (Negative); Resp Syncy Virus RNA Qual PCR NEGATIVE (Negative); SARS COV2 PCR INHOUSE NEGATIVE (Negative)
== END 2023-07-02 17:02 | disposition home or self-care (01) ==
LOC: HO.LNP 17:01
PROVIDERS: Visit Provider Nurse Practitioner Family
DX: Z11.52 Encounter for screening for COVID-19 (principal); Z20.822 Contact with and (suspected) exposure to COVID-19; R05.9 Cough, unspecified; J02.9 Acute pharyngitis, unspecified
CPT/HCPCS: 0241U

== ENCOUNTER 2024-08-15 09:17 | Outpatient (AMB) | payer OTHER, SELFPAY ==
--- NOTE | 2024-08-15 10:12 | MHC.OFFWIV ---
Intake Vital Signs 08/15/24 10:13 08/15/24 10:30 Weight 225 lb BP 120/90 H 160/90 H Blood Pressure Location Lt brachial Lt brachial Position Sitting Sitting Pulse 84 Pulse Source Pulse Oximeter Temp 98.7 F Temp Source Oral Pulse Oximetry (%) 98 Oxygen Delivery Method Room Air Intake Visit Reasons: EP ? sinus infection Intake Note: Patient here for cough,sinus congestion that has been present for a couple of weeks now. Patient Tobacco Use Status: Never used Tobacco Allergies metronidazole [Flagyl] Allergy (Unknown, Verified 08/15/24 10:21) Hives polyethylene glycol Allergy (Unknown, Verified 08/15/24 10:21) Unknown Quinolones Allergy (Unknown, Verified 08/15/24 10:21) Muscle cramps Medication List - Last Reconciled 08/15/24 by JENNA Sampson-BC multivitamin with iron (Daily Multiple Vitamins with Iron tablet) 1 tab PO DAILY Do you need a note to return to daycare/school/sports/work: No HPI HPI Comments History of Present Illness Details Current PCP Dr Dewey - would like to SAE to Rhea Ludwig History - The patient is a 64-year-old female presenting with sinus congestion, cough, and sore throat. - Reports experiencing cough and sinus congestion for a few weeks, leading to a sore throat, mainly on the right side. - Long-standing history of sinus infections and allergy symptoms contributing to current condition. - Recent exacerbation includes nocturnal wheezing and sore throat onset - Current symptoms have not been associated with fever, chills, or ear pain. - Blood pressure is noted to be elevated during periods of feeling unwell. Not on anti-htn. Denies cardiac complaints. - Self-administers Motrin, Claritin, Benadryl, and natural supplements, with varying efficacy. Physical Exam General: Awake, alert. No apparent distress Eyes: Sclera and conjunctiva clear bilaterally Nose: Nares patent, turbinates within normal limits, + maxillary and frontal sinus tenderness with palpation bilaterally Ears: cerumen impaction R unable to see TM, TM intact w/ congestion L Throat: Moist mucosa membrane, pharynx w/o exudate, regrowth of tonsillar tissue on the L(pt states chronic), uvula midline, no ac adenopathy, managing secretions Cardiovascular: Regular rate and rhythm Respiratory: Clear to auscultation bilaterally Discussion Notes During the consultation, we discussed that the patient's symptoms including sinus congestion, sore throat, and nocturnal wheezing, align with likely bacterial sinusitis. Despite the patient's preference for natural and alternative remedies, she is agreeable to initiate antibiotic therapy with Augmentin due to the prolonged symptomatology. The potential side effects of Augmentin were reviewed, and I advised the patient to consume it with food to mitigate gastrointestinal discomfort. We also discussed the importance of completing the full seven-day course of therapy even if symptoms improve early. The patient expressed her intent to continue with natural remedies and probiotics alongside the antibiotic therapy. We set a follow-up appointment in two weeks to reassess blood pressure levels and overall improvement of symptoms. The patient was instructed to monitor her symptoms and advised to return earlier if there is no improvement or worsening of symptoms. Assessment and Plan 1. Sinusitis, likely bacterial: Initiated treatment with Augmentin in response to persistent symptoms of sinusitis. The patient will also maintain her natural regimen. Benefits and side effects were discussed, with emphasis on adherence to therapy. Follow-up will assess treatment efficacy. 2. Sore throat: Likely secondary to sinusitis. Covered by treatment of primary sinusitis. Patient advised to observe any persistent issues. 3. Elevated blood pressure: Monitored for transient elevation likely due to acute illness. Follow-up scheduled for blood pressure evaluation. 4. Wheezing: An incident of nocturnal wheezing noted, not present during examination. Advised follow-up if symptoms persist. Patient Instructions - Take Augmentin (amoxicillin/clavulanate) one tablet twice daily with food for 7 days. - Use saline nasal rinse regularly and refrain from using decongestants. - Continue natural supplements as supportive care. - Monitor symptoms closely; seek care if no improvement in 48 hours or if symptoms worsen. - Follow up in two weeks for blood pressure recheck and review of current symptoms. Consent Patient was informed and verbally consented to the use of an ambient scribe for clinic note documentation during this visit. [facility] Social History Patient Tobacco Use Status: Never used Tobacco Physical Exam Vital Signs: Last Vital Signs Temp 98.7 F 08/15/24 10:13 Pulse 84 08/15/24 10:13 BP 120/90 H 08/15/24 10:13 Pulse Ox 98 08/15/24 10:13 Oxygen Delivery Method Room Air 08/15/24 10:13 Assessment & Plan Assessment & Plan (1) Acute sinusitis: Code(s): J01.90 - Acute sinusitis, unspecified Qualifiers: Sinusitis location: pansinusitis Recurrence: non-recurrent Qualified Code(s): J01.40 - Acute pansinusitis, unspecified (2) Elevated blood pressure reading: Code(s): R03.0 - Elevated blood-pressure reading, without diagnosis of hypertension Plan . Medications: New amoxicillin-pot clavulanate 875-125 mg 1 tab PO BID 7 days 14 tabs 0RF Coding Level of Care Code Est Pt Level 4 (88211) Diagnoses Acute non-recurrent pansinusitis J01.40 Sinusitis location: pansinusitis Recurrence: non-recurrent Elevated blood pressure reading R03.0
[2024-08-15 10:13] VITALS: BP 120/90; PULSE 84; TEMP 37.1; O2SAT 98
--- OUTSIDE RECORDS SUMMARY | 2024-08-15 10:21 | XMS_ITS | Data Portability ---
Author Organization [facility], [address] Address [address] [place] [address] Assessment No assessment recorded. Plan of Treatment Reminders Order Date Submit Date Provider Last Modified By Organization Details Last Modified Time Details Appointments None recorded. Lab rapid strep group A, throat 2023 024 [email or web address] [facility], [address] [place], [address], 4 10:41:16 streptococc us group A, culture, throat 2023 024 [place] [facility] ([facility], [address] [place] [address], [place], [address], 4 08:08:30 Referral None recorded. Procedures None recorded. Surgeries None recorded. Imaging None recorded. Medication Orders Augmentin 875 mg-125 mg tablet 2023 024 [facility]armacy #[id number], [address] [place], [address], 4 10:41:16 albuterol sulfate HFA 90 mcg/actuati on aerosol inhaler 2023 024 [facility] #[id number], [address] [place], [address], 4 10:41:16 Patient TargetsNo targets recorded. Patient Instructions Encounter Date Encounter Id Patient Instructions Last Modified By Organization Details Last Modified Time 09/18/2023 [id number] upper respirator y infection (cold): care instructions [email or web address] Not available 09/18/2023 10:41:14 Reason for Referral None Reported. Results Created Date Observation Date Name Description Value Unit Range Abnormal Flag Note LastModifiedBy Organization Detail LastModifiedTime 09/18/19 24 09/21/2023 BETA STREP GP A CULTU RE beta strep gp A culture NEGATI VE Refer ence Range : Negat adriano Not Available [facility] ([facility]) [address] [facility], [place], [address], 09/21/2023 08:08:30 09/18/19 24 09/18/2023 rapid strep group A, throa t Unknown Analyte negati ve Not Available [address] [address] [facility] [address] [place] [address], [address], 09/18/2023 10:02:31 09/18/19 24 09/18/2023 rapid strep group A, throa t Unknown Analyte negati ve Not Available [facility] [address] [place] [address], [address], 09/18/2023 10:02:31 09/18/19 24 09/18/2023 rapid strep group A, throa t Unknown Analyte yes Not Available [address], [address], 09/18/2023 10:02:31 Result Notes None recorded. Problems Name Problem SNOMED Code Status Onset Date Resolution Date Notes Provider Name and Address Organization Details Recorded Time Acute upper respiratory infection 20899651 Active Alin Evans NP [address] [place], [address] , [place] - [facility] 10:39:27 Problem Notes None recorded. Medical Equipment None Reported. Allergies Allergen ID Allergen Name Allergen Category Reaction Reaction Severity Criticality Documentation Date Start Date Code Code System Note Provider Name and Address Organization Details Recorded Time 292886 polyethyl agustina glycols medicatio n Not available Not available Not available 09/18/2023 8516 RxNorm DEVIN Rawls [facility] 4 10:01:15 510864 red dye food,medi cation Not available Not available Not available 09/18/2023 05830 UNK DEVIN Rawls [facility] 4 10:01:24 Medications Name Sig Start Date Stop Date Status Note LastModified by Organization Details LastModified Time cyclobenzap rine 10 mg tablet TAKE 1 TABLET (ORAL) AT BEDTIME NEEDED FOR MUSCLE SPASM 09/17 completed Not Available Not Available Not Available phenazopyri dine 200 mg tablet TAKE 1 TABLET (200 MG) BY MOUTH 3 TIMES A DAY FOR 6 DOSES 09/17 completed Not Available Not Available Not Available benzonatate 100 mg capsule TAKE 1 CAPSULE BY MOUTH 3 TIMES A DAY 09/17 completed Not Available Not Available Not Available albuterol sulfate HFA 90 mcg/actuati on aerosol inhaler INHALE 2 PUFFS EVERY 4 HOURS BY INHALATIO N ROUTE FOR 10 DAYS, FOR SHORTNESS OF BREATH/WH EEZING. active Not Available Not Available No t Available amoxicillin 875 mg-potassiu m clavulanate 125 mg tablet TAKE 1 TABLET EVERY 12 HOURS BY ORAL ROUTE FOR 10 DAYS, FOR URI. active Not Available Not Available No t Available azithromyci n 500 mg tablet TAKE 1 TABLET BY MOUTH DAILY FOR 3 DAYS 09/17 completed Not Available Not Available Not Available nitrofurant oin monohydrate /macrocryst als 100 mg capsule TAKE 1 CAPSULE BY MOUTH 2 TIMES A DAY FOR 5 DAYS MUST ADMINISTE R WITH A MEAL/FOOD 09/17 completed Not Available Not Available Not Available Vitals Date Recorded Respiratory rate Body height Body mass index (BMI) Body weight Body temperature Heart rate Oxygen saturation Oxygen saturation in Arterial blood by Pulse oximetry Systolic blood pressure Diastolic blood pressure Provider Name and Address Organization Details Last Updated DateTime 4 18 /min 160.02 cm 38.1 kg/m2 89307.3 6 g 99.6 [degF] 88 /min 98 % 98 % 137 mm[Hg] 83 mm[Hg] Melissa Oden [facility] 4 10:03:39 Social History Question Answer Notes LastModified by Organizat ion Details LastModified Time Tobacco Smoking Status Never Smoker DEVIN Rawls - [facility] 09/18/2023 10:02:10 What Is Your Level Of Alcohol Consumption? Occasional Information not available 09/18/2023 Have You Had A Flu Shot This Season? Yes Information not available 09/18/2023 If No, Would You Like A Flu Shot Today? No Information not available 09/18/2023 Have You Had Direct Contact, Or Contact During Intimacy, With Monkeypox Rash, Scabs, Or Body Fluids From A Person With Monkeypox? No Information not available 09/18/2023 What Was The Date Of Your Most Recent Tobacco Screening? 09/18/2023 Information not available 09/18/2023 Do You Use Any Illicit Or Recreational Drugs? No Information not available 09/18/2023 Have You Recently Traveled Abroad? No Information not available 09/18/2023 Do You Or Have You Ever Used Any Other Forms Of Tobacco Or Nicotine? No Information not available 09/18/2023 Sex: Unknown Functional Status None recorded. Mental Status None recorded. Family History Relationship Description Onset Age of this Age Resolved Age Notes LastModified by Organization Details LastModified Time Father No current problems or disability Not available 09/17 10:01:55 Mother No current problems or disability Not available 09/17 10:01:55 Medical History No medical history recorded. Gynecological History Statement/Question Response Is there any chance of ? No Obstetrics History GPAL:G 0 P 0 0 0 0 Past Encounters Encounter ID Performer Location Encounter Start Date Encounter Closed Date Diagnosis/Indication Diagnosis SNOMED-CT Code Diagnosis ICD10 Code Diagnosis [facility] [id number] [facility] [address] [address] 07/08/2017 13:26:14 07/08/2017 15:43:58 [id number] [facility] [address] [address] 03/27/2015 12:52:18 03/27/2015 15:27:10 [id number] [facility] [address] [address] 03/01/2015 16:34:46 03/01/2015 17:27:15 [id number] [facility] [address] 06/15/2016 12:16:39 06/15/2016 13:26:27 [id number] [facility] [address] 06/27/2016 16:00:07 06/27/2016 16:37:34 [id number] [facility] [address] [address] 10/16/2016 16:18:21 10/16/2016 17:22:44 [id number] [facility] [address] 09/08/2015 08:43:49 09/08/2015 09:41:32 [id number] [address] [address] 05/15/2018 11:15:52 05/15/2018 12:24:38 [id number] [place] [address] [address] 09/18/2023 09:48:16 09/18/2023 10:47:01 Acute upper respiratory infection 42920126 J06.9 Based on your Presentati on, Exam, and Lab Testing you are being diagnosed with Upper respirator y track infection The following are my recommenda tions to help with your symptoms while your body fights this infection: 1. Take Ibuprofen or Tylenol if you do not have any allergies to these medication s. If you take a blood thinner you should not take NSAIDS like Ibuprofen. These medication will help with the inflammati on in your respirator y tract which should help the cough.2. Do not take any decongesta nts at this time because this will dry out that tract too much. If you have a lot of nasal congestion you can try nasal decongesta nts, but I would not take them more than 5 days.3. Use a humidifier or add a cup of water by your bed. Sometimes if our sleeping environmen t is too dry this can lead to cough4. Salt Water Gargles5. Saline nasal spray is helpful.6. Would recommend taking a antihistam ine to help with the congestion .7. Clean Surfaces regularly and try to stay isolated from family members. I would be seen again if you develop any of the following. 1. Cough develops last longer than 3 weeks.2. Develop shortness of breath or wheezing.3 . Severe Headache with vision changes4. Stiff Neck5. Fever does not reduce a few points with Ibuprofen or Tylenol. I would go immediatel y to the Emergency Room if you develop:1. Chest Pain2. Severe Shortness of breath3. Coughing up Blood. I would be seen again if you develop any of the following symptoms.1 . Fever > 101.02. Stiff neck - where you can't turn your neck3. Trouble swallowing your saliva - drooling4. Swelling of a lymph node in your throat that is painful to touch5. Difficulty breathing6 . Severe Headache Thank you for using [facility] today, please feel free to contact our office if you have any questions or concerns. Health Concerns Section Related Observation LastModified by Organization Detai ls LastModified Time None Recorded Concern Status LastModified by Organization Details LastModified Time None Recorded Advance Directives Directive None Recorded Payers Encounter Date Sequence Insurance Name Policy Number Policy Hernandez Covered Member ID Hernandez Member ID Guarantor Name 06/27/2016 1 [place] [id number] Tisha Teresa Boy-Mera [id number] [facility] 10/16/2016 1 [place] [id number] Tisha Teresa Boy-Mera [id number] Tisha Mera 07/08/2017 1 [place] [id number] Tisha D Boy-Mera [id number] [facility] 05/15/2018 1 [place] [id number] Tisha Teresa Boy-Mera [id number] Tisha Mera 09/18/2023 1 [place] [id number] [facility] [id number] [facility] Notes Date Note Type Note Provider Name and Address Organization Details Recorded Time 4 text/html Sore throatReported bypatient.Source of patient informationInformation obtained from patient; Patient arrived at Urgent Care ambulatory Location:throat Severity:moderate Quality:dull; hurts to swallow Onset/Timin weeks Associated Symptoms:no cough; no sputum production; no vomiting; no nausea; No hoarseness;shortness of breath;congestion;sinus pain/ congestion Context:no foreign travel; non-smoker;sick contact 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
[2024-08-15 10:30] VITALS: BP 160/90
== END 2024-08-15 10:41 | disposition home or self-care (01) ==
PROVIDERS: PCP Internal Medicine; Visit Provider Nurse Practitioner Family
DX: J01.40 Acute pansinusitis, unspecified (principal); R03.0 Elevated blood-pressure reading, without diagnosis of hypertension

== ENCOUNTER 2024-08-24 10:03 | Outpatient (REF) | payer OTHER, SELFPAY ==
--- OUTSIDE RECORDS SUMMARY | 2024-08-24 11:41 | XMS_ITS | Data Portability ---
Author Organization [facility], [facility] Address [address] [place] [address] Assessment No assessment recorded. Plan of Treatment Reminders Order Date Submit Date Provider Last Modified By Organization Details Last Modified Time Details Appointments None recorded. Lab rapid strep group A, throat 2023 024 [email or web address] [facility], [address] [place], [address], 4 10:41:16 streptococc us group A, culture, throat 2023 024 [place] [facility] ([facility], [address] [place] [address], [place], [address], 4 08:08:30 Referral None recorded. Procedures None recorded. Surgeries None recorded. Imaging None recorded. Medication Orders Augmentin 875 mg-125 mg tablet [address] [facility] #0838, [address] [place], [address], 4 10:41:16 albuterol sulfate HFA 90 mcg/actuati on aerosol inhaler [address] [facility]arm[facility] #0838, [address] [place], [address], 4 10:41:16 Patient TargetsNo targets recorded. Patient Instructions Encounter Date Encounter Id Patient Instructions Last Modified By Organization Details Last Modified Time 09/18/2023 [id number] upper respirator y infection (cold): care instructions [email or web address] Not available 09/18/2023 10:41:14 Reason for Referral None Reported. Results Created Date Observation Date Name Description Value Unit Range Abnormal Flag Note LastModifiedBy Organization Detail LastModifiedTime 09/18/19 24 09/21/2023 BETA STREP GP A CULTU RE beta strep gp A culture NEGATI VE Refer ence Range : Negat adriano Not Available [facility] ([facility]) [address] [facility], [place], [address], 09/21/2023 08:08:30 09/18/19 24 09/18/2023 rapid strep group A, throa t Unknown Analyte negati ve Not Available [address] [place] [address] [facility] [address] [place] [address], [address], 09/18/2023 10:02:31 09/18/19 24 09/18/2023 rapid strep group A, throa t Unknown Analyte negati ve Not Available [facility] [address] [place] [address], [address], 09/18/2023 10:02:31 09/18/19 24 09/18/2023 rapid strep group A, throa t Unknown Analyte yes Not Available [address], [address], 09/18/2023 10:02:31 Result Notes None recorded. Problems Name Problem SNOMED Code Status Onset Date Resolution Date Notes Provider Name and Address Organization Details Recorded Time Acute upper respiratory infection 87136246 Active Alin Evans NP [address] [place], [address] , [place] - [facility] 10:39:27 Problem Notes None recorded. Medical Equipment None Reported. Allergies Allergen ID Allergen Name Allergen Category Reaction Reaction Severity Criticality Documentation Date Start Date Code Code System Note Provider Name and Address Organization Details Recorded Time 218683 polyethyl agustina glycols medicatio n Not available Not available Not available 09/18/2023 8516 RxNorm DEVIN Rawls [facility] 4 10:01:15 693480 red dye food,medi cation Not available Not available Not available 09/18/2023 30926 UNK DEVIN Rawls [facility] 4 10:01:24 [...] 4 18 /min 160.02 cm 38.1 kg/m2 11850.3 6 g 99.6 [degF] 88 /min 98 [...] SNOMED-CT Code Diagnosis ICD10 Code Diagnosis Note [id number] [facility] [address] [address] 07/08/2017 13:26:14 07/08/2017 15:43:58 [id number] [facility] [address] [address] 03/27/2015 12:52:18 03/27/2015 15:27:10 [id number] [facility] [address] [address] 03/01/2015 16:34:46 03/01/2015 17:27:15 [id number] [facility] [address] 06/15/2016 12:16:39 06/15/2016 13:26:27 [id number] [facility] [address] 06/27/2016 16:00:07 06/27/2016 16:37:34 [id number] [facility] [address] [address] 10/16/2016 16:18:21 10/16/2016 17:22:44 [id number] [facility] [address] 09/08/2015 08:43:49 09/08/2015 09:41:32 [id number] [address] [address] [address] 05/15/2018 11:15:52 05/15/2018 12:24:38 [id number] Yvonne Evans [place] [address] [address] [address] 09/18/2023 09:48:16 09/18/2023 10:47:01 Acute upper respiratory infection [id number] J06.9 Based on your Presentati on, Exam, [...] . Severe Headache Thank you for using [facility] today, please feel free to contact our [...] Guarantor Name 06/27/2016 1 [place] [id number] Tisha Teresa Boy-Mera [id number] [facility] [place] 10/16/2016 1 [place] [id number] Tisha Teresa Boy-Mera [id number] Tisha Mera 07/08/2017 1 [place] [id number] Tisha D Boy-Mera [id number] [facility] [place] 05/15/2018 1 [place] [id number] Tisha Teresa Boy-Mera [id number] Tisha Mera 09/18/2023 1 [place] [id number] [facility] [id number] [facility] Notes Date Note Type Note Provider Name [...] Evans NP [address] [place], [address], [place] - [facility] 09/18/2023 10:46:01 OBGyn Episode No OBEpisode recorded.
[2024-08-24 13:08] LABS: Appearance Urine Cloudy; Color Urine Yellow; Glucose Urine UA Negative (Negative); Leukocyte Esterase Urine Moderate (2+) (Negative); Nitrite Urine Negative (Negative); PH 8.5 (5.0-9.0); UMIC TRIGGER UA YES; Urine Blood Negative (Negative); Urine Ketones Negative (Negative); Urine Protein Negative (Neg-Trace)
[2024-08-24 13:09] LABS: MANUAL DIFF FLAG NO
[2024-08-24 13:28] LABS: Basophils Absolute Auto 0.1 X10*3/uL (0.0-0.2); Basophils Percent Auto 0.9 % (0-2); Eosinophils Absolute Auto 0.2 X10*3/uL (0.0-0.4); Eosinophils Percent Auto 3.2 % (0-4); Hematocrit 45.8 % (37.0-47.0); Hemoglobin 15.2 g/dl (12.0-16.0); Imm Gran Abs Auto 0.02 X10*3/uL (0.00-0.03); Imm Gran Pct Auto 0.3 % (0.0-0.4); Lymphocytes Absolute Auto 3.4 X10*3/uL (1.2-4.9); Lymphocytes Percent Auto 44.5 % (20-40); Mean Corpuscular HGB Conc 33.2 g/dl (31.0-35.0); Mean Corpuscular Hemoglobin 29.7 pg (27.0-33.0); Mean Corpuscular Volume 89.6 fL (80.0-98.0); Mean Platelet Volume 9.1 fL (9.4-12.3); Monocytes Absolute Auto 0.5 X10*3/uL (0.1-1.2); Neutrophils Absolute Auto 3.4 x10*3/uL (2.0-8.3); Neutrophils Percent Auto 44.1 % (45-73); Platelet Count 317 X10*3/uL (160-400); Red Blood Count 5.11 X10*6/uL (4.20-5.50); Red Cell Distribution Width 12.5 % (11.0-16.0); White Blood Count 7.6 X10*3/uL (4.8-10.8)
[2024-08-24 13:33] LABS: Bacteria Urine None Seen (None Seen); Hyaline Casts Urine 0-2 /LPF (0-2); RBC Urine 0-2 /HPF (0-2); Squamous Epithelial Cell Urine >20 /HPF (0-2); WBC Urine 0-5 /HPF (0-5)
[2024-08-24 13:49] LABS: HBS Num1 171.51 mIU/mL (0-7.99); ~Hepatitis B Surface Antibody REACTIVE (Nonreactive)
[2024-08-24 13:53] LABS: Alanine Aminotransferase 38 U/L (0-31); Albumin Level 4.3 g/dL (3.5-5.0); Alkaline Phosphatase 52 U/L (39-117); Anion Gap 13 (12-20); Aspartate Amino Transferase 30 U/L (5-31); Bilirubin Total 0.5 mg/dL (0.0-1.0); Blood Urea Nitrogen 15 mg/dL (9-16); Calcium 9.4 mg/dL (8.4-10.2); Carbon Dioxide 27 mmol/L (22-29); Chloride 104 mmol/L (96-108); Cholesterol 206 mg/dL (<200); Estimated Glomerular Filt Rate > 60; Glucose Fasting 100 mg/dL (60-99); HDL Cholesterol 55 mg/dL (>40); LDL Cholesterol Calculated 132 mg/dL (<100); Sodium 140 mmol/L (135-145); Total Protein 8.1 g/dL (6.5-8.0); Triglycerides 97 mg/dL (<150)
[2024-08-24 14:11] LABS: Vitamin D 25-OH Total 52.7 ng/mL (>30)
[2024-08-28 17:53] LABS: Rubeola IgG (Measles) >300.00 AU/mL
== END 2024-08-24 10:04 | disposition home or self-care (01) ==
LOC: HO.10HDL 10:03
PROVIDERS: Visit Provider Internal Medicine
DX: K21.9 Gastro-esophageal reflux disease without esophagitis (principal); E78.00 Pure hypercholesterolemia, unspecified; I10 Essential (primary) hypertension; Z00.00 Encounter for general adult medical examination without abnormal findings
CPT/HCPCS: 36415; 80053; 80061; 81001; 82306; 85025; 86706; 86735; 86762; 86765

== ENCOUNTER 2024-08-31 10:05 | Outpatient (AMB) | payer OTHER, SELFPAY ==
--- NOTE | 2024-08-31 10:10 | A.OFFPC_ITS ---
Vital Signs 08/31/24 10:19 Height 5 ft 3 in Weight 223 lb 8 oz BMI 39.6 BP 162/75 H Blood Pressure Location Rt brachial Position Sitting Respiration 16 Pulse 85 Pulse Source Pulse Oximeter Temp 98.6 F Temp Source Oral Pulse Oximetry (%) 98 Oxygen Delivery Method Room Air Intake Visit Reasons: Est. Joel / Dr. Dewey Pt. blood pressure recheck Intake Note: patient here for new patient visit Dry Man Required: No Is last menstrual period known: No Post menopausal: No Patient : No Allergies metronidazole [Flagyl] Allergy (Unknown, Verified 08/31/24 10:14) Hives polyethylene glycol Allergy (Unknown, Verified 08/31/24 10:14) Unknown Quinolones Allergy (Unknown, Verified 08/31/24 10:14) Muscle cramps Medication List - Last Reconciled 08/31/24 by Leoncio Meyer MD multivitamin with iron (Daily Multiple Vitamins with Iron tablet) 1 tab PO DAILY Tobacco use date assessed: 08/31/24 Dental Screening Dental Screen Date: 08/31/24 Did you have a dental visit in the last 12 months?: Yes Did you have a dental problem in the last 6 months where you did not have access to dental care?: No Was dental information given to patient?: Patient has dentist HPI Est. Joel / Dr. Dewey Pt. blood pressure recheck HPI Details 64 y/o female presents today for an acut e issue for her blood pressure, acute sinusitis. Has complaints of a sore throat. [facility] Medical History (Updated 08/31/24 @ 11:00 by Leoncio Meyer MD) Eczema Diverticulitis Heart murmur, systolic Surgical History (Updated 08/31/24 @ 10:28 by Sharee Flowers MA) History of lymph node dissection of right axilla History of tonsillectomy Family History (Updated 08/31/24 @ 10:24 by Sharee Flowers MA) Maternal Grandmother Diabetes Father Stroke (cerebrum) Mother Breast cancer Social History Housing: House Patient Tobacco Use Status: Never used Tobacco e-Cigarette/Vaping Use: Never Used Second Hand Smoke Exposure: No Patient : No service: Yes Current occupational status: employed Current occupation: [employer] Current occupational exposures/hazards: No Cognitive needs: No Hearing needs: No Vision needs: No Questionnaire PHQ-9 Over the last 2 weeks, how often have you been bothered by any of the following problems? 1. Little interest or pleasure in doing things: not at all 2. Feeling down, depressed, or hopeless: not at all 3. Trouble falling or staying asleep, or sleeping too much: not at all 4. Feeling tired or having little energy: several days 5. Poor appetite or overeating: not at all 6. Feeling bad about yourself - or that you are a failure or have let yourself or your family down: not at all 7. Trouble concentrating on things, such as reading the newspaper or watching television: not at all 8. Moving or speaking so slowly that other people could have noticed. Or the opposite - being so fidgety or restless that you have been moving around a lot more than usual: not at all 9. Thoughts that you would be better off or of hurting yourself in some way: not at all Total score: 1 Depression Screening Interpretation: Negative Depression Screening Done: Yes 06003 - PHQ-9 Billing: Yes Source: Developed by Drs. Valeriy Hubbard, Dafne Clifford, Juan Henderson and colleagues, with an educational jeremiah from [employer]. Thrive Questionnaire Date Thrive assessed: 08/31/24 I am a: Patient What is your living situation today?: I have a steady place to live Within the past 12 months, did the food you bought not last and you didn't have the money to get more?: Often true Within the past 12 months, did you worry whether your food would run out before you got money to buy more?: Never true Do you have trouble paying for medicines?: No Do you have trouble getting transportation to medical appointments?: No Do you have trouble paying your heating and electricity bill?: No Do you have trouble taking care of your child, family member or friend?: No Do you have trouble with day-to-day activities such as bathing, preparing meals, shopping, managing finances, etc.?: No Are you currently unemployed and looking for a job?: No Are you interested in more education?: No Please select the resources that you would like help with: None Currently or been in a relationship where the following occur: No concerns reported THRIVE Score: 1 AUDIT C Alcohol Use Questionnaire (AUDIT-C) 1. How often do you have a drink containing alcohol?: 2-4 times a month 2. How many drinks containing alcohol do you have on a typical day when you are drinking?: 1 or 2 3. How often do you have six or more drinks on one occasion?: Never Total Score: 2 Score Reviewed/Action Taken: Yes CHRISITANO-7 AMB Questionnaire CHRISTIANO-7 Date CHRISTIANO - 7 assessed: 08/31/24 Feeling nervous, anxious, or on edge: 0 = Not at all Not being able to stop or control worryin = Not at all Worrying too much about different things: 0 = Not at all Trouble relaxin = Not at all Being so restless that it is hard to sit still: 0 = Not at all Becoming easily annoyed or irritable: 0 = Not at all Feeling afraid as if something awful might happen: 0 = Not at all Total CHRISTIANO-7 score (0-4 normal; 5-9 mild; 10-14 moderate; 15-21 severe): 0 Source: Developed by Drs. Valeriy Hubbard, Dafne Clifford, Juan Henderson and colleagues, with an educational jeremiah from [employer]. CHRISTIANO-7 Assessment Billing CHRISTIANO-7 Assessment Tool: CHRISTIANO-7 Assessment 39764 Review of Systems Const Denies chills, Denies fatigue, Denies fever(s), Denies headache(s) and Denies weakness ENT Denies dizziness, Denies headache(s) and Reports sore throat Card Denies dyspnea Resp Denies cough, Denies dyspnea, Denies wheezing and Denies other (shortness of breath) Musc Denies numbness and Denies tingling Neuro Denies dizziness, Denies headache(s), Denies numbness, Denies tingling and Denies weakness Psych Denies anxiety and Denies depression Endo Denies fatigue Aller/Immun Denies wheezing Physical exam (Primary Care) Vital Signs: Last Vital Signs Temp 98.6 F 08/31/24 10:19 Pulse 85 08/31/24 10:19 Resp 16 08/31/24 10:19 BP 162/75 H 08/31/24 10:19 Pulse Ox 98 08/31/24 10:19 Oxygen Delivery Method Room Air 08/31/24 10:19 BMI result Body Mass Index 39.6 Tobacco/Smoking Status: Tobacco use Status Tobacco use date assessed 08/31/24 08/31/24 10:16 Patient Tobacco Use Status Never used Tobacco 08/31/24 10:10 e-Cigarette/Vaping Use Never Used 08/31/24 10:19 PHQ-9: PHQ-9 Score PHQ-9: Total score 1 08/31/24 10:16 Depression Screening Interpretation: Negative Thrive Assessment: Date of Thrive Assessment Date Thrive assessed 08/31/24 08/31/24 10:12 Currently or been in a relationship where the following occur: No concerns reported Const General: well developed; No acute distress Nutritional Appearance: well nourished Orientation/consciousness: patient oriented x3 HENMT Head: Yes normocephalic and Yes atraumatic Eyes General: appearance normal, both eyes and all related structures Pupils: Equal, round and reactive pupils present EOM: EOMs intact bilaterally Resp Effort & Inspection: normal respiratory effort Neuro General: patient oriented x3 and gait normal Cranial nerves: Yes Equal, round and reactive pupils present Psych Affect: normal affect Coding Level of Care Code Est Pt Level 4 (75045) Diagnoses Recurrent respiratory infection J98.8 Sinusitis J32.9 Elevated blood pressure reading R03.0 Heart murmur, systolic R01.1 Additional Codes CHRISTIANO-7 Assessment Billing - CHRISTIANO-7 Assessment Tool: CHRISTIANO-7 Assessment 55679 ([id number]) PHQ-9 - 83337 - PHQ-9 Billing: Yes ([id number]) Assessment & Plan Assessment & Plan (1) Recurrent respiratory infection: Code(s): J98.8 - Other specified respiratory disorders Category: Medical Plan: Patient?presents?to?fill?out?paperwork?for?FMLA?fo?r ecurrent?respiratory?infections. No?evidence?of?bacterial?infection?today.??Symptoms?lasting?longer?than?2?weeks. Possible?irritant?or?allergy Advised?nasal?saline?rinses Advised?nasal?steroid?and?day time?antihistamine.??Patient?does?not?want?to?use?medications?at?this?time. 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 She?says?blood?pressures?fine?when?she?is?not?sick. Asked?her?to?bring?a?log?of?her?blood?pressures?when?she?returns. (4) Heart murmur, systolic: Code(s): R01.1 - Cardiac murmur, unspecified Category: Medical Plan: Patient?notes?that?she?has?a?systolic?murmur. I?did?not?appreciate?this?today. She?says?this?has?worked?up?and?is?benign Orders: Orders Complete Blood Count Auto Diff Today Z00.00 - Encounter for general adult medical examination without abnormal findings Microalbumin, Random (w Creat) Today I10 - Essential (primary) hypertension Lipid Panel Today Z00.00 - Encounter for general adult medical examination without abnormal findings TSH reflex Free T4 Today Z00.00 - Encounter for general adult medical examination without abnormal findings Comprehensive [place]. Panel Fast Today Z00.00 - Encounter for general adult medical examination without abnormal findings UA CC w/rflx Micro + Cult Today Z00.00 - Encounter for general adult medical examination without abnormal findings
[2024-08-31 10:19] VITALS: BP 162/75; PULSE 85; RESP 16; TEMP 37; O2SAT 98; BMI 39.6
--- OUTSIDE RECORDS SUMMARY | 2024-08-31 11:54 | XMS_ITS | Data Portability ---
Author Organization [facility], [address] Address [address] [place] [address] Assessment No assessment recorded. Plan of Treatment Reminders Order Date Submit Date Provider Last Modified By Organization Details Last Modified Time Details Appointments None recorded. Lab rapid strep group A, throat 2023 024 [email or web address] [facility], [address] [place], [address], 4 10:41:16 streptococc us group A, culture, throat 2023 024 VERA [facility] ([facility], [address] [place] [address], [place], [address], 4 08:08:30 Referral None recorded. Procedures None recorded. Surgeries None recorded. Imaging None recorded. Medication Orders Augmentin 875 mg-125 mg tablet 2023 024 [facility] #[id number], [address] [place], [address], 4 10:41:16 albuterol sulfate HFA 90 mcg/actuati on aerosol inhaler 2023 024 [facility] #[id number], [address] [place], [address], 4 10:41:16 Patient TargetsNo targets recorded. Patient Instructions Encounter Date Encounter Id Patient Instructions Last Modified By Organization Details Last Modified Time 09/18/2023 [id number] upper respirator y infection (cold): care instructions [email or web address] Not available 09/18/2023 10:41:14 Reason for Referral None Reported. Results Created Date Observation Date Name Description Value Unit Range Abnormal Flag Note LastModifiedBy Organization Detail LastModifiedTime 09/18/19 24 09/21/2023 BETA STREP GP A CULTU RE beta strep gp A culture NEGATI VE Refer ence Range : Negat adriano Not Available [facility] ([facility]) [address] [facility], [place], [address], 09/21/2023 08:08:30 09/18/19 24 09/18/2023 rapid strep group A, throa t Unknown Analyte negati ve Not Available [id number] [place] [address] [facility] [address] [place] [address], [phone], 09/18/2023 10:02:31 09/18/19 24 09/18/2023 rapid strep group A, throa t Unknown Analyte negati ve Not Available [facility] [address] [place] [address], [phone], 09/18/2023 10:02:31 09/18/19 24 09/18/2023 rapid strep group A, throa t Unknown Analyte yes Not Available [address], [address], 09/18/2023 10:02:31 Result Notes None recorded. Problems Name Problem SNOMED Code Status Onset Date Resolution Date Notes Provider Name and Address Organization Details Recorded Time Acute upper respiratory infection 40900066 Active Alin Evans NP [address] [place], [address] , [place] - [facility] 10:39:27 Problem Notes None recorded. Medical Equipment None Reported. Allergies Allergen ID Allergen Name Allergen Category Reaction Reaction Severity Criticality Documentation Date Start Date Code Code System Note Provider Name and Address Organization Details Recorded Time 809457 polyethyl agustina glycols medicatio n Not available Not available Not available 09/18/2023 8516 RxNorm DEVIN Rawls [facility] 4 10:01:15 779804 red dye food,medi cation Not available Not available Not available 09/18/2023 85176 UNK DEVIN Rawls [facility] 4 10:01:24 [...] 4 18 /min 160.02 cm 38.1 kg/m2 85055.3 6 g 99.6 [degF] 88 /min 98 [...] SNOMED-CT Code Diagnosis ICD10 Code Diagnosis Note [id number] [facility] [address] [address] 07/08/2017 13:26:14 07/08/2017 15:43:58 [id number] [facility] [address] [address] 03/27/2015 12:52:18 03/27/2015 15:27:10 [id number] [facility] [address] [address] 03/01/2015 16:34:46 03/01/2015 17:27:15 [id number] [facility] [address] 06/15/2016 12:16:39 06/15/2016 13:26:27 [id number] [facility] [address] 06/27/2016 16:00:07 06/27/2016 16:37:34 [id number] [facility] [address] [address] 10/16/2016 16:18:21 10/16/2016 17:22:44 [id number] [facility] [address] 09/08/2015 08:43:49 09/08/2015 09:41:32 [id number] [address] [address] [address] 05/15/2018 11:15:52 05/15/2018 12:24:38 [id number] Yvonne Evans [place] [address] [address] [address] 09/18/2023 09:48:16 09/18/2023 10:47:01 Acute upper respiratory infection [id number] J06.9 Based on your Presentati on, Exam, [...] . Severe Headache Thank you for using [employer] today, please feel free to contact our [...] Guarantor Name 06/27/2016 1 [place] [id number] Tisha Teresa Boy-Mera [id number] [facility] 10/16/2016 1 [place] [id number] Tisha Teresa Boy-Mera [id number] Tisha Mera 07/08/2017 1 [place] [id number] Tisha D Boy-Mera [id number] [facility] 05/15/2018 1 [place] [id number] Tisha Teresa Boy-Mera [id number] Tisha Mera 09/18/2023 1 [place] [id number] [facility] [id number] [facility] Notes Date Note Type Note Provider Name [...] Evans NP [address] [place], [address], [place] - [facility] 09/18/2023 10:46:01 OBGyn Episode No OBEpisode recorded.
== END 2024-08-31 11:24 | disposition home or self-care (01) ==
LOC: HO.HMCFM 10:06
PROVIDERS: PCP Family Medicine; Visit Provider Family Medicine
DX: J98.8 Other specified respiratory disorders (principal); J32.9 Chronic sinusitis, unspecified; R03.0 Elevated blood-pressure reading, without diagnosis of hypertension; R01.1 Cardiac murmur, unspecified

== ENCOUNTER → 2024-08-31 10:05 | Outpatient (BNVA) | payer OTHER, SELFPAY | PROVIDERS: PCP Family Medicine; Visit Provider Family Medicine | DX: J98.8 Other specified respiratory disorders (principal); J32.9 Chronic sinusitis, unspecified; R03.0 Elevated blood-pressure reading, without diagnosis of hypertension; R01.1 Cardiac murmur, unspecified | CPT/HCPCS: 96127 ==

== ENCOUNTER 2024-08-31 11:41 | Outpatient (REF) | payer OTHER, SELFPAY ==
[2024-08-31 14:17] LABS: Appearance Urine Clear; Color Urine Yellow; Glucose Urine UA Negative (Negative); Leukocyte Esterase Urine Trace (Negative); Nitrite Urine Negative (Negative); UMIC TRIGGER UACC YES; Urine Blood Negative (Negative); Urine Ketones Negative (Negative); Urine Protein Trace mg/dL (Neg-Trace)
[2024-08-31 14:19] LABS: MANUAL DIFF FLAG NO
[2024-08-31 14:26] LABS: Basophils Absolute Auto 0.1 X10*3/uL (0.0-0.2); Basophils Percent Auto 1.2 % (0-2); Eosinophils Absolute Auto 0.3 X10*3/uL (0.0-0.4); Hematocrit 45.2 % (37.0-47.0); Imm Gran Abs Auto 0.02 X10*3/uL (0.00-0.03); Imm Gran Pct Auto 0.3 % (0.0-0.4); Lymphocytes Absolute Auto 2.6 X10*3/uL (1.2-4.9); Mean Corpuscular HGB Conc 33.2 g/dl (31.0-35.0); Mean Corpuscular Hemoglobin 29.9 pg (27.0-33.0); Mean Platelet Volume 9.7 fL (9.4-12.3); Monocytes Absolute Auto 0.4 X10*3/uL (0.1-1.2); Monocytes Percent Auto 6.6 % (2-11); Neutrophils Absolute Auto 3.1 x10*3/uL (2.0-8.3); Neutrophils Percent Auto 47.9 % (45-73); Platelet Count 300 X10*3/uL (160-400); Red Blood Count 5.02 X10*6/uL (4.20-5.50); Red Cell Distribution Width 12.6 % (11.0-16.0); White Blood Count 6.5 X10*3/uL (4.8-10.8)
[2024-08-31 14:31] LABS: Bacteria Urine Trace (None Seen); Hyaline Casts Urine 0-2 /LPF (0-2); RBC Urine 0-2 /HPF (0-2); WBC Urine 0-5 /HPF (0-5)
[2024-08-31 14:34] LABS: Creatinine Urine 161.75 mg/dL; Microalbum/Creatinine Ratio Ur 12.9 ug/mg cr (<30)
[2024-08-31 14:45] LABS: Alanine Aminotransferase 53 U/L (0-31); Albumin Level 4.3 g/dL (3.5-5.0); Alkaline Phosphatase 55 U/L (39-117); Aspartate Amino Transferase 32 U/L (5-31); Bilirubin Total 0.5 mg/dL (0.0-1.0); Blood Urea Nitrogen 16 mg/dL (9-16); Calcium 9.2 mg/dL (8.4-10.2); Cholesterol 214 mg/dL (<200); Estimated Glomerular Filt Rate > 60; Glucose Fasting 90 mg/dL (60-99); HDL Cholesterol 61 mg/dL (>40); LDL Cholesterol Calculated 132 mg/dL (<100); Total Protein 7.9 g/dL (6.5-8.0); Triglycerides 106 mg/dL (<150)
[2024-08-31 15:01] LABS: Anion Gap 13 (12-20); Carbon Dioxide 26 mmol/L (22-29); Chloride 105 mmol/L (96-108); Sodium 140 mmol/L (135-145)
[2024-08-31 15:08] LABS: TSH reflex Free T4 1.44 uIU/mL (0.32-4.0)
[2024-08-31 15:13] LABS: Erythrocyte Sedimentation Rate 12 MM/HR (0-20)
[2024-09-01 05:37] LABS: CRP High Sensitivity 3.6 mg/L
[2024-09-01 06:23] LABS: Lyme Abs Screen <0.90 index
== END 2024-08-31 11:42 | disposition home or self-care (01) ==
LOC: HO.WFDLDS 11:41
PROVIDERS: Visit Provider Family Medicine
DX: Z00.00 Encounter for general adult medical examination without abnormal findings (principal); J98.8 Other specified respiratory disorders; I10 Essential (primary) hypertension; R01.1 Cardiac murmur, unspecified
CPT/HCPCS: 36415; 80053; 80061; 81001; 82043; 82570; 84443; 85025; 85652; 86141; 86617; 86618

== ENCOUNTER 2024-09-11 10:10 | Outpatient (AMB) | payer OTHER, SELFPAY ==
--- NOTE | 2024-09-11 10:46 | MHC.OFFWIV ---
Intake Vital Signs 09/11/24 10:52 Weight 223 lb 6 oz BP 132/88 Blood Pressure Location Lt brachial Position Sitting Pulse 104 H Pulse Source Pulse Oximeter Temp 98.4 F Temp Source Oral Pulse Oximetry (%) 97 Oxygen Delivery Method Room Air Intake Visit Reasons: EP AB pain [phone] Intake Note: Patient here for abdominal pain that has been going on for about 2 days. Patient Tobacco Use Status: Never used Tobacco Allergies metronidazole [Flagyl] Allergy (Unknown, Verified 09/11/24 10:53) Hives polyethylene glycol Allergy (Unknown, Verified 09/11/24 10:53) Unknown Quinolones Allergy (Unknown, Verified 09/11/24 10:53) Muscle cramps Do you need a note to return to daycare/school/sports/work: No HPI HPI Comments History of Present Illness Details History of Present Illness - The patient is a 64-year-old female presenting with abdominal pain. - Onset was the night before, with an associated sensation of heaviness and bloating across the lower abdomen, worse when bending forward. - The patient has known conditions of diverticulosis and a small umbilical hernia as well as a renal cyst, all on Abd/pelvic CT scan from 2019 which she has brought with her today. Denies history of kidney stones. - Lacks accompanying symptoms such as fevers, nausea, vomiting, diarrhea, painful urination, increased frequency of urination. - Reports episodic interruption in urine flow. Last BM was normal and was this morning. - Previous urinalysis showed trace leukocyte esterase, and white blood cells were present 11 days ago - Medical history includes pharyngitis and liver enzyme abnormalities post-Augmentin treatment. Physical Exam General: Cooperative, healthy appearing, comfortable, no acute distress and well developed Orientation: Patient oriented x3 Limitations: No limitations Head: Normal to inspection Ears: Hearing grossly normal bilaterally Nose: Normal External nose present Face and sinus: Normal facial exam Eyes: Appearance normal, both eyes and all related structures Neck: Normal visual inspection and Yes full ROM Respiratory: Normal respiratory effort and able to speak in complete sentences. GI: obese abdomen, soft, negative Anthony's, negative Mc Augusto's, slight TTP LLQ, suprapubic area and RLQ Skin: No rashes or lesions noted Neuro: Patient oriented x3 Extremities: Normal to inspection [facility] Medical History (Updated 09/11/24 @ 11:32 by Jessika Shea PA-C) Eczema Diverticulitis Heart murmur, systolic Surgical History (Updated 08/31/24 @ 10:28 by Sharee Flowers MA) History of lymph node dissection of right axilla History of tonsillectomy Family History (Updated 08/31/24 @ 10:24 by Sharee Flowers MA) Maternal Grandmother Diabetes Father Stroke (cerebrum) Mother Breast cancer Social History Housing: House Patient Tobacco Use Status: Never used Tobacco e-Cigarette/Vaping Use: Never Used Second Hand Smoke Exposure: No service: Yes Current occupational status: employed Current occupation: [employer] Current occupational exposures/hazards: No Cognitive needs: No Hearing needs: No Vision needs: No Review of Systems Const All systems reviewed & are unremarkable except as noted in HPI and below Physical Exam Vital Signs: Last Vital Signs Temp 98.4 F 09/11/24 10:52 Pulse 104 H 09/11/24 10:52 BP 132/88 09/11/24 10:52 Pulse Ox 97 09/11/24 10:52 Oxygen Delivery Method Room Air 09/11/24 10:52 Results AMB Urinalysis, Automated UA Leukoctes 0 Shellie/uL Last Edit by TUNG Tijerina on 09/11/24 11:27 UA Nitrite Negative Last Edit by Salinas Diaz CCM on 09/11/24 11:27 UA Urobilinogen 0.2 mg/dL Last Edit by Salinas Diaz CCM on 09/11/24 11:27 UA Protein 0 mg/dL Last Edit by Salinas Diaz CCM on 09/11/24 11:27 UA pH 7.5 Last Edit by Salinas Diaz CCM on 09/11/24 11:27 UA Blood 0 Asif/uL Last Edit by Salinas Diaz CCM on 09/11/24 11:27 UA Specific [place] 1.010 Last Edit by Salinas Diaz CCM on 09/11/24 11:27 UA Ketone Negative Last Edit by Salinas Diaz CCM on 09/11/24 11:27 UA Bilirubin 0 mg/dL Last Edit by TUNG Tijerina on 09/11/24 11:27 UA Glucose 0 mg/dL Last Edit by TUNG Tijerina on 09/11/24 11:27 Results Reviewed Results Reviewed: Laboratory Last Values Urine pH (Auto) 7.5 09/11/24 11:25 Specific [place] (Auto) 1.010 09/11/24 11:25 Urine Protein (Auto) 0 mg/dL 09/11/24 11:25 Glucose (UA)(Auto) 0 mg/dL 09/11/24 11:25 Urine Ketones (Auto) Negative 09/11/24 11:25 Urine Blood (Auto) 0 Asif/uL 09/11/24 11:25 Urine Nitrite (Auto) Negative 09/11/24 11:25 Urine Bilirubin (Auto) 0 mg/dL 09/11/24 11:25 Urine Urobilinogen (Auto) 0.2 mg/dL 09/11/24 11:25 Leukocyte Esterase (Auto) 0 Shellie/uL 09/11/24 11:25 Assessment & Plan Assessment & Plan (1) Lower abdominal pain: Comment: Code(s): R10.30 - Lower abdominal pain, unspecified Plan: Pt slightly tachycardic, otherwise VSS, pt well appearing and PE remarkable for slight, diffuse lower abdominal pain. For this case, further diagnostic evaluation is warranted due to the presentation of unexplained abdominal pain with existing conditions such as diverticulosis though PE not consistent with diverticulitis. Patient also agreed that the pain was not similar to her previous diverticulitis flare. A repeat urinalysis is indicated for assessing possible urinary tract infections owing to recent abnormal findings, trace WBC on 08/31/24. UA in office was negative for infection or blood. To be thorough, a urine culture has been sent. Patient should monitor her symptoms and if her symptoms intensify, she should go to the emergency department for a thorough workup to assess intra-abdominal pathology. I have sent a message to her primary care doctor to advise him of how she is feeling in case he can see her as a follow-up or wants to order additional workup. Differential diagnosis includes but not limited to diverticulitis, nephrolithiasis, appendicitis, acute urinary retention, cystitis, infectious colitis, ovarian cysts, pelvic inflammatory disease, pelvic abscess, abdominal aortic aneurysm, hernia, abdominal wall hematoma, abdominal wall infection, muscular strain, herpes zoster or malignancy. Given structural limitations of the clinic, emergency care access for comprehensive visualization and precise results remains an advised course. The patient should monitor symptoms and pursue ER evaluation with worsening conditions for essential diagnostic elucidation and corresponding treatment. Scanned in her Abd/pelvic CT from 2019. Patient was informed and verbally consented to the use of an ambient scribe for clinic note documentation during this visit. Orders: Orders Urine Culture Today N39.0 - Urinary tract infection, site not specified AMB Urinalysis Automated Today Z13.9 - Encounter for screening, unspecified Coding Level of Care Code Est Pt Level 3 (15185) Diagnoses Lower abdominal pain R10.30
[2024-09-11 10:52] VITALS: BP 132/88; PULSE 104; TEMP 36.9; O2SAT 97
--- OUTSIDE RECORDS SUMMARY | 2024-09-11 11:48 | XMS_ITS | Data Portability ---
Author Organization [facility], [address] Address [address] [place] [address] Assessment No assessment recorded. Plan of Treatment Reminders Order Date Submit Date Provider Last Modified By Organization Details Last Modified Time Details Appointments None recorded. Lab rapid strep group A, throat 2023 024 [email or web address] _[facility], [address] [place], [address], 4 10:41:16 streptococc us group A, culture, throat 2023 024 [place] [facility] ([facility], [address] [place] [address], [place], [address], 4 08:08:30 Referral None recorded. Procedures None recorded. Surgeries None recorded. Imaging None recorded. Medication Orders Augmentin 875 mg-125 mg tablet 2023 024 [facility]/Pharmacy #[id number], [address] [place], [address], 4 10:41:16 albuterol sulfate HFA 90 mcg/actuati on aerosol inhaler 2023 024 [facility]/Pharmacy #0838, [address] [place], [address], 4 10:41:16 Patient TargetsNo targets recorded. Patient Instructions Encounter Date Encounter Id Patient Instructions Last Modified By Organization Details Last Modified Time 09/18/2023 [id number] upper respirator y infection (cold): care instructions [email or web address] Not available 09/18/2023 10:41:14 Reason for Referral None Reported. Results Created Date Observation Date Name Description Value Unit Range Abnormal Flag Note LastModifiedBy Organization Detail LastModifiedTime 09/18/19 24 09/21/2023 BETA STREP GP A CULTU RE beta strep gp A culture NEGATI VE Refer ence Range : Negat adriano Not Available [facility] ([facility]) [address] [facility], [place], [address], 09/21/2023 08:08:30 09/18/19 24 09/18/2023 rapid strep group A, throa t Unknown Analyte negati ve Not Available [address] [place] [address] [facility] [address] [place] [address], [address], 09/18/2023 10:02:31 09/18/19 24 09/18/2023 rapid strep group A, throa t Unknown Analyte negati ve Not Available [facility] [address] [place] [address], [address], 09/18/2023 10:02:31 09/18/19 24 09/18/2023 rapid strep group A, throa t Unknown Analyte yes Not Available [address], [address], 09/18/2023 10:02:31 Result Notes None recorded. Problems Name Problem SNOMED Code Status Onset Date Resolution Date Notes Provider Name and Address Organization Details Recorded Time Acute upper respiratory infection 80794375 Active Alin Evans NP [address] [place], [address] , [place] - [facility] 10:39:27 Problem Notes None recorded. Medical Equipment None Reported. Allergies Allergen ID Allergen Name Allergen Category Reaction Reaction Severity Criticality Documentation Date Start Date Code Code System Note Provider Name and Address Organization Details Recorded Time 428725 polyethyl agustina glycols medicatio n Not available Not available Not available 09/18/2023 8516 RxNorm DEVIN Rawls [facility] 4 10:01:15 866782 red dye food,medi cation Not available Not available Not available 09/18/2023 61610 UNK DEVIN Rawls [facility] 4 10:01:24 [...] 4 18 /min 160.02 cm 38.1 kg/m2 32050.3 6 g 99.6 [degF] 88 /min 98 [...] SNOMED-CT Code Diagnosis ICD10 Code Diagnosis Note [id number] [facility] [address] [address] 07/08/2017 13:26:14 07/08/2017 15:43:58 [id number] [facility] [address] [address] 03/27/2015 12:52:18 03/27/2015 15:27:10 [id number] [facility] [address] [address] 03/01/2015 16:34:46 03/01/2015 17:27:15 [id number] [address] [address] 06/15/2016 12:16:39 06/15/2016 13:26:27 [id number] [facility] [address] 06/27/2016 16:00:07 06/27/2016 16:37:34 [id number] [facility] [address] [address] 10/16/2016 16:18:21 10/16/2016 17:22:44 [id number] [facility] [address] 09/08/2015 08:43:49 09/08/2015 09:41:32 [id number] 20[address]_[place] [address] [address] 05/15/2018 11:15:52 05/15/2018 12:24:38 [id number] [place]vonne Evans [place] [address]_[place] [address] 09/18/2023 09:48:16 09/18/2023 10:47:01 Acute upper respiratory infection 25019037 J06.9 Based on your Presentati on, Exam, [...] . Severe Headache Thank you for using [facility] today, please feel free to contact our [...] Guarantor Name 06/27/2016 1 [place] [id number] Tisha Teresa Boy-Mera [id number] [facility] 10/16/2016 1 [place] [id number] Tisha Teresa Boy-Mera [id number] Tisha Mera 07/08/2017 1 [place] [id number] Tisha D Boy-Mera [id number] [facility] 05/15/2018 1 [place] [id number] Tisha Teresa Boy-Mera [id number] Tisha Mera 09/18/2023 1 [place] [id number] [facility] [id number] [facility] Notes Date Note Type Note Provider [...] Evans NP [address] [place], [address], [place] - [facility] 09/18/2023 10:46:01 OBGyn Episode No OBEpisode recorded.
== END 2024-09-11 11:28 | disposition home or self-care (01) ==
PROVIDERS: PCP Family Medicine; Visit Provider Physician Assistant
DX: Z13.9 Encounter for screening, unspecified (principal); R10.30 Lower abdominal pain, unspecified

== ENCOUNTER 2024-09-11 10:10 | Outpatient (REF) | payer OTHER, SELFPAY | END 2024-09-11 10:11 | disposition home or self-care (01) | LOC: HO.LAB 10:10 | PROVIDERS: PCP Family Medicine; Visit Provider Physician Assistant | DX: N39.0 Urinary tract infection, site not specified (principal) | CPT/HCPCS: 81003 ==

== ENCOUNTER 2024-09-21 11:32 | Outpatient (AMB) | payer OTHER, SELFPAY ==
--- NOTE | 2024-09-21 12:46 | AM.OFFWIN_ITS ---
Intake Vital Signs 09/21/24 12:57 Weight 223 lb BP 140/100 H Blood Pressure Location Lt brachial Position Sitting Pulse 82 Pulse Source Pulse Oximeter Pulse Oximetry (%) 96 Oxygen Delivery Method Room Air Intake Visit Reasons: EP- RT knee, lower back and RT elbow (fell) Intake Note: Patient here for right knee, lower back and right elbow pain after a fall in the back of her house 3 days ago. Patient Tobacco Use Status: Never used Tobacco Allergies metronidazole [Flagyl] Allergy (Unknown, Verified 09/21/24 13:07) Hives polyethylene glycol Allergy (Unknown, Verified 09/21/24 13:07) Unknown Quinolones Allergy (Unknown, Verified 09/21/24 13:07) Muscle cramps Medication List - Last Reconciled 09/21/24 by JENNA Sampson-IVAN multivitamin with iron (Daily Multiple Vitamins with Iron tablet) 1 tab PO DAILY Do you need a note to return to daycare/school/sports/work: No HPI HPI Comments History of Present Illness Details History of Present Illness - The patient is a 64-year-old female pr esenting with an injury following a fall on a slippery deck. - She experienced right knee pain, with difficulty bending the knee and pain under the kneecap. The severity of the pain increased over three days. - The fall also resulted in forearm pain , affecting her ability to write, and new-onset lower back pain. - Her medical background includes a rece nt episode of diverticulitis, confirmed via CT scan. She is following dietary management instead of immediate antibiotic therapy, in line with recent protocol updates. Physical Exam General: Well developed, well nourished, in no acute distress. Appears stated age. Head: Normocephalic, atraumatic. Musculoskeletal: Right knee pain with tenderness under the kneecap, pain on bending and straightening. Right Forearm pain noted, particularly when writing. Joints are otherwise nontender, without swelling, redness, or effusions. Neurovasc intact. Pulses: Peripheral pulses are equal and palpable bilaterally. Psych: Mood and affect appropriate. Results [facility] [address] [place] [address] [place] [address] XRay Report Signed Patient: Tisha Tesfaye MR#: [id number] : 1960 Acct:[id number] Age/Sex: 64 / F ADM Date: 09/21/24 Loc: HO.HMGCX Attending Dr: Catarina LEDBETTER Ordering Physician: Catarina Khan Date of Service: 09/21/24 Procedure(s): XR knee RT 4V Accession Number(s): [id number] cc: Leoncio Meyer MD; Catarina Khan~ EXAMINATION: XR KNEE 4 OR MORE VIEWS RIGHT HISTORY: W19.XXXA - Unspecified fall, initial encounter COMPARISON: There are no prior studies available for comparison. FINDINGS: Four views of the right knee are submitted. Osseous mineralization is normal. There is no fracture or dislocation. There is mild osteoarthritis of the medial compartment with joint space narrowing and osteophyte formation. There is a small joint effusion. XR/XR knee RT 4V IMPRESSION: Small joint effusion. Mild osteoarthritis of the medial compartment. Electronically signed by: Valeriy Singleton MD 09/21/2024 02:01 PM EDT Signed Patient: Tisha Tesfaye MR#: [id number] : 1960 Acct:[id number] Age/Sex: 64 / F ADM Date: 09/21/24 Loc: ERNESTO.HMGCX Attending Dr: Catarina LEDBETTER Ordering Physician: Catarina Khan Date of Service: 09/21/24 Procedure(s): XR wrist RT w scaphoid Accession Number(s): [id number] cc: Leoncio Meyer MD; Catarina Khan~ EXAMINATION: XR FOREARM 2 VIEWS RIGHT, XR WRIST NAVICULAR RIGHT HISTORY: W19.XXXA - Unspecified fall, initial encounter COMPARISON: There are no prior studies available for comparison. FINDINGS: Four views of the right wrist including a scaphoid view, and AP and lateral views of the right forearm are submitted. Osseous mineralization is normal. There is no fracture or dislocation. The joint spaces are preserved. The soft tissues are unremarkable. XR/XR wrist RT w scaphoid IMPRESSION: Unremarkable examination of the right forearm and wrist. Patient: Tisha Tesfaye MR#: [id number] : 1960 Acct:[id number] Age/Sex: 64 / F ADM Date: 09/21/24 Loc: HO.HMGCX Attending Dr: Catarina BLEDSOE Ordering Physician: Catarina Khan Date of Service: 09/21/24 Procedure(s): XR forearm RT 2V Accession Number(s): [id number] cc: Leoncio Meyer MD; Catarina Khan~ EXAMINATION: XR FOREARM 2 VIEWS RIGHT, XR WRIST NAVICULAR RIGHT HISTORY: W19.XXXA - Unspecified fall, initial encounter COMPARISON: There are no prior studies available for comparison. FINDINGS: Four views of the right wrist including a scaphoid view, and AP and lateral views of the right forearm are submitted. Osseous mineralization is normal. There is no fracture or dislocation. The joint spaces are preserved. The soft tissues are unremarkable. XR/XR forearm RT 2V IMPRESSION: Unremarkable examination of the right forearm and wrist. Discussion Notes During our discussion, we addressed the sudden onset of symptoms likely related to the recent fall. The possibility of tendon or ligament injury was considered, given the mechanism of injury, which involves twisting and impact to the right knee. Although there was no immediate bruising, worsening of symptoms warranted further investigation. The plan includes obtaining x-rays to rule out fractures and potentially consulting orthopedic specialists for more detailed joint evaluation. Since ligament and tendon injuries may not be visible on x-rays, consideration of an MRI was also discussed if symptoms persist. Assessment and Plan 1. Right knee injury We will obtain x-rays to rule out fracture. If normal yet symptoms persist, orthopedic evaluation may be indicated to assess for soft tissue injury such as ligament or tendon involvement. 2. Forearm pain An x-ray of the forearm will be taken to evaluate for any fractures. If normal but pain continues, consider immobilization or physical therapy interventions. Xrays are negative for fractures. You have swelling of the knee, which we knew anyways. Recommond rest, ice, elevation, NSAIDs, gentle range of motion and follow up with Ortho if no improvement. Patient Instructions - Rest and elevate your knee as much as possible. - Take NSAIDs like ibuprofen for pain ma nagement. - Monitor for increased pain, swelling, or new symptoms. - Expect follow-up for x-ray results and further evaluations. Consent Patient was informed and verbally consented to the use of an ambient scribe for clinic note documentation during this visit. [facility] Medical History (Updated 09/21/24 @ 15:05 by Catarina Khan [facility]) Diverticulitis Eczema Heart murmur, systolic Surgical History (Updated 08/31/24 @ 10:28 by Sharee Flowers MA) History of lymph node dissection of right axilla History of tonsillectomy Family History (Updated 08/31/24 @ 10:24 by Sharee Flowers MA) Maternal Grandmother Diabetes Father Stroke (cerebrum) Mother Breast cancer Social History Housing: House Patient Tobacco Use Status: Never used Tobacco e-Cigarette/Vaping Use: Never Used Second Hand Smoke Exposure: No service: Yes Current occupational status: employed Current occupation: [employer] Current occupational exposures/hazards: No Cognitive needs: No Hearing needs: No Vision needs: No Physical Exam Vital Signs: Last Vital Signs Pulse 82 09/21/24 12:57 BP 140/100 H 09/21/24 12:57 Pulse Ox 96 09/21/24 12:57 Oxygen Delivery Method Room Air 09/21/24 12:57 Extrem Right upper extremity: full ROM, normal capillary refill, no joint enlargement and elbow/forearm Details: normal to inspection, normal ROM and distal pulses intact Right lower extremity: normal to inspection, normal capillary refill and knee (NEUROVASC INTACT, NO CREPITUS, ANTALGIC GAIT RIGHT LEG ) Details: normal to inspection, tenderness Location: of the patella Details: medially and knee ligament exam normal Assessment & Plan Assessment & Plan (1) Fall: Code(s): W19.XXXA - Unspecified fall, initial encounter Qualifiers: Encounter type: initial encounter Qualified Code(s): W19.XXXA - Unspecified fall, initial encounter (2) Right knee pain: Code(s): M25.561 - Pain in right knee (3) Right arm pain: Code(s): M79.601 - Pain in right arm (4) Right wrist pain: Code(s): M25.531 - Pain in right wrist (5) Knee effusion, right: Code(s): M25.461 - Effusion, right knee Plan . Orders: Orders XR wrist RT w scaphoid Today M25.531 - Pain in right wrist, M25.561 - Pain in right knee, M79.601 - Pain in right arm, W19.XXXA - Unspecified fall, initial encounter XR knee RT 4V Today M25.531 - Pain in right wrist, M25.561 - Pain in right knee, M79.601 - Pain in right arm, W19.XXXA - Unspecified fall, initial encounter XR forearm RT 2V Today M25.531 - Pain in right wrist, M25.561 - Pain in right knee, M79.601 - Pain in right arm, W19.XXXA - Unspecified fall, initial encounter Referrals Orthopedics Referral M25.531 - Pain in right wrist, M25.561 - Pain in right knee, M79.601 - Pain in right arm, W19.XXXA - Unspecified fall, initial encounter Coding Level of Care Code Est Pt Level 4 (09078) Diagnoses Fall, initial encounter W19.XXXA Encounter type: initial encounter Right knee pain M25.561 Right arm pain M79.601 Right wrist pain M25.531 Knee effusion, right M25.461
[2024-09-21 12:57] VITALS: BP 140/100; PULSE 82; O2SAT 96
--- OUTSIDE RECORDS SUMMARY | 2024-09-21 13:04 | XMS_ITS | Data Portability ---
Author Organization [facility], [address] Address [address] [place] [address] Assessment No assessment recorded. Plan of Treatment Reminders Order Date Submit Date Provider Last Modified By Organization Details Last Modified Time Details Appointments None recorded. Lab rapid strep group A, throat 2023 024 [email or web address] [facility], [address] [place], [address], 4 10:41:16 streptococc us group A, culture, throat 2023 024 [place] [facility] ([facility], [address] [place] [address], [place], [address], 4 08:08:30 Referral None recorded. Procedures None recorded. Surgeries None recorded. Imaging None recorded. Medication Orders Augmentin 875 mg-125 mg tablet 2023 024 [facility]/Pharmacy #0838, [address] [place], [address], 4 10:41:16 albuterol sulfate HFA 90 mcg/actuati on aerosol inhaler 2023 024 [facility]armacy #0838, [address] [place], [address], 4 10:41:16 Patient TargetsNo targets recorded. Patient Instructions Encounter Date Encounter Id Patient Instructions Last Modified By Organization Details Last Modified Time 09/18/2023 [id number] upper respirator y infection (cold): care instructions [email or web address] Not available 09/18/2023 10:41:14 Reason for Referral None Reported. Results Created Date Observation Date Name Description Value Unit Range Abnormal Flag Note LastModifiedBy Organization Detail LastModifiedTime 09/18/19 24 09/21/2023 BETA STREP GP A CULTU RE beta strep gp A culture NEGATI VE Refer ence Range : Negat adriano Not Available [facility] ([facility]) [address] [facility], [place], [address], 09/21/2023 08:08:30 09/18/19 24 09/18/2023 rapid strep group A, throa t Unknown Analyte negati ve Not Available [id number] [place] [address] [facility] [address] [place] [address], [address], 09/18/2023 10:02:31 09/18/19 24 09/18/2023 rapid strep group A, throa t Unknown Analyte negati ve Not Available [facility] [address] [place] [address], [address], 09/18/2023 10:02:31 09/18/19 24 09/18/2023 rapid strep group A, throa t Unknown Analyte yes Not Available [address], [address], 09/18/2023 10:02:31 Result Notes None recorded. Problems Name Problem SNOMED Code Status Onset Date Resolution Date Notes Provider Name and Address Organization Details Recorded Time Acute upper respiratory infection 12304828 Active Alin Evans NP [address] [place], [address] , [place] - [facility] 10:39:27 Problem Notes None recorded. Medical Equipment None Reported. Allergies Allergen ID Allergen Name Allergen Category Reaction Reaction Severity Criticality Documentation Date Start Date Code Code System Note Provider Name and Address Organization Details Recorded Time 519577 polyethyl agustina glycols medicatio n Not available Not available Not available 09/18/2023 8516 RxNorm DEVIN Rawls [facility] 4 10:01:15 253710 red dye food,medi cation Not available Not available Not available 09/18/2023 89321 UNK DEVIN Rawls [facility] 4 10:01:24 [...] 4 18 /min 160.02 cm 38.1 kg/m2 89946.3 6 g 99.6 [degF] 88 /min 98 [...] SNOMED-CT Code Diagnosis ICD10 Code Diagnosis Note [id number] 2[facility] [address] [address] 07/08/2017 13:26:14 07/08/2017 15:43:58 [id number] 20994_[facility] [address] [address] 03/27/2015 12:52:18 03/27/2015 15:27:[id number] [place] [address] [address] [place] [address] 03/01/2015 16:34:46 03/01/2015 17:27:15 [id number] [facility] [address] [place] [address] 06/15/2016 12:16:39 06/15/2016 13:26:[id number] [place] [address] [address] [place] [address] 06/27/2016 16:00:07 06/27/2016 16:37:34 [id number] [facility] [address] [place] [address] 10/16/2016 16:18:21 10/16/2016 17:22:[id number] [place] [address] [address] [address] 09/08/2015 08:43:49 09/08/2015 09:41:[id number] [place] [address] [address] [address] 05/15/2018 11:15:52 05/15/2018 12:24:38 [id number] Yvonne Evans [place] [address] [address] [place] [address] 09/18/2023 09:48:16 09/18/2023 10:47:01 Acute upper respiratory infection [id number] J06.9 Based on your Presentati on, Exam, [...] . Severe Headache Thank you for using [facility] today, please feel free to contact our office if you have any questions or concerns. Health Concerns Section Related Observation LastModified by Organization Detai ls LastModified Time None Recorded Concern Status LastModified by Organization Details LastModified Time None Recorded Advance Directives Directive None Recorded Payers Insurance Date Sequence Insurance Name Policy Number Policy Hernandez Covered Member ID Hernandez Member ID Guarantor Name 09/23/2023 1 [employer] [place] [id number] [facility] [id number] [facility] 09/18/2023 1 [place] [id number] Tisha BrunsonMera [id number] [facility] 09/23/2023 1 [place] [id number] [facility] [id number] [facility] Notes Date Note Type Note Provider Name [...] Evans NP [address] [place], [address], [place] [facility] 09/18/2023 10:46:01 OBGyn Episode No OBEpisode recorded.
== END 2024-09-21 14:41 | disposition home or self-care (01) ==
PROVIDERS: PCP Family Medicine; Visit Provider Nurse Practitioner Family
DX: M25.561 Pain in right knee (principal); M79.601 Pain in right arm; M25.531 Pain in right wrist; M25.461 Effusion, right knee; W19.XXXA Unspecified fall, initial encounter

== ENCOUNTER 2024-09-21 11:32 | Outpatient (REF) | payer OTHER, SELFPAY ==
--- NOTE | ~2024-09-21 | XR_ITS ---
EXAMINATION: XR FOREARM 2 VIEWS RIGHT, XR WRIST NAVICULAR RIGHT HISTORY: W19.XXXA - Unspecified fall, initial encounter COMPARISON: There are no prior studies available for comparison. FINDINGS: Four views of the right wrist including a scaphoid view, and AP and lateral views of the right forearm are submitted. Osseous mineralization is normal. There is no fracture or dislocation. The joint spaces are preserved. The soft tissues are unremarkable. XR/XR wrist RT w scaphoid IMPRESSION: Unremarkable examination of the right forearm and wrist. Electronically signed by: Valeriy Singleton MD 09/21/2024 02:54 PM EDT
--- NOTE | ~2024-09-21 | XR_ITS ---
EXAMINATION: XR FOREARM 2 VIEWS RIGHT, XR WRIST NAVICULAR RIGHT HISTORY: W19.XXXA - Unspecified fall, initial encounter COMPARISON: There are no prior studies available for comparison. FINDINGS: Four views of the right wrist including a scaphoid view, and AP and lateral views of the right forearm are submitted. Osseous mineralization is normal. There is no fracture or dislocation. The joint spaces are preserved. The soft tissues are unremarkable. XR/XR forearm RT 2V IMPRESSION: Unremarkable examination of the right forearm and wrist. Electronically signed by: Valeriy Singleton MD 09/21/2024 02:54 PM EDT
--- NOTE | ~2024-09-21 | XR_ITS ---
EXAMINATION: XR KNEE 4 OR MORE VIEWS RIGHT HISTORY: W19.XXXA - Unspecified fall, initial encounter COMPARISON: There are no prior studies available for comparison. FINDINGS: Four views of the right knee are submitted. Osseous mineralization is normal. There is no fracture or dislocation. There is mild osteoarthritis of the medial compartment with joint space narrowing and osteophyte formation. There is a small joint effusion. XR/XR knee RT 4V IMPRESSION: Small joint effusion. Mild osteoarthritis of the medial compartment. Electronically signed by: Valeriy Singleton MD 09/21/2024 02:01 PM EDT
== END 2024-09-21 11:33 | disposition home or self-care (01) ==
LOC: HO.HMGCX 11:32
PROVIDERS: PCP Family Medicine; Visit Provider Nurse Practitioner Family
DX: M25.531 Pain in right wrist (principal); M79.601 Pain in right arm; M25.561 Pain in right knee; W19.XXXA Unspecified fall, initial encounter
CPT/HCPCS: 73090; 73110; 73564

== ENCOUNTER → 2024-09-21 13:28 | Outpatient (BNV) | payer OTHER, SELFPAY | PROVIDERS: PCP Family Medicine; Visit Provider Radiology Diagnostic Radiology | DX: M25.461 Effusion, right knee (principal); S69.91XA Unspecified injury of right wrist, hand and finger(s), initial encounter; S59.911A Unspecified injury of right forearm, initial encounter | CPT/HCPCS: 73090; 73110; 73564 ==

== ENCOUNTER 2025-01-10 13:59 | Outpatient (AMB) | payer OTHER, SELFPAY ==
--- NOTE | 2025-01-10 14:05 | MHC.PC.OV ---
Vital Signs 01/10/25 14:10 01/10/25 14:38 Height 5 ft 3 in Weight 220 lb BMI 39.0 BP 175/85 H 167/87 H Blood Pressure Location Lt brachial Rt brachial Position Sitting Sitting Respiration 16 Pulse 106 H Pulse Source Pulse Oximeter Temp 99.8 F Temp Source Oral Pulse Oximetry (%) 96 Oxygen Delivery Method Room Air Intake Visit Reasons: Annual Physical Intake Note: patient here for CPE Poster Required: No Is last menstrual period known: No Post menopausal: No Patient : No Allergies metronidazole (Flagyl) Allergy (Unknown, Verified 01/10/25 14:09) Hives polyethylene glycol Allergy (Unknown, Verified 01/10/25 14:09) Unknown Quinolones Allergy (Unknown, Verified 01/10/25 14:09) Muscle cramps Medication List - Last Reconciled 01/10/25 by Leoncio Meyer MD multivitamin with iron (Daily Multiple Vitamins with Iron tablet) 1 tab PO DAILY Tobacco use date assessed: 01/10/25 Dental Screening Dental Screen Date: 01/10/25 Did you have a dental visit in the last 12 months?: Yes Did you have a dental problem in the last 6 months where you did not have access to dental care?: No Was dental information given to patient?: Patient has dentist HPI Annual Physical HPI Details Patient presents for CPE with follow-up labs and health maintenance Blood pressure in exam room is elevated again today. Reviewed labs in discussed that LDL cholesterol is rather high though her HDL is good. Patient has ongoing dyspnea with exertion. She notes history of murmur and as above, blood pressure is quite high in the office though she denies it is high at home. She also notes recurrent respiratory infections. Also has recurrent abdominal pain. Currently declines further workup today except patient is concerned regarding parasites. [facility] Medical History Eczema Diverticulitis Heart murmur, systolic Surgical History History of lymph node dissection of right axilla History of tonsillectomy Family History Maternal Grandmother Diabetes Father Stroke (cerebrum) Mother Breast cancer Social History Housing: House Patient Tobacco Use Status: Never used Tobacco e-Cigarette/Vaping Use: Never Used Second Hand Smoke Exposure: No Patient : No service: Yes Current occupational status: employed Current occupation: [employer] Current occupational exposures/hazards: No Cognitive needs: No Hearing needs: No Vision needs: No Questionnaire PHQ-9 Over the last 2 weeks, how often have you been bothered by any of the following problems? 1. Little interest or pleasure in doing things: not at all 2. Feeling down, depressed, or hopeless: not at all 3. Trouble falling or staying asleep, or sleeping too much: not at all 4. Feeling tired or having little energy: more than half the days 5. Poor appetite or overeating: not at all 6. Feeling bad about yourself - or that you are a failure or have let yourself or your family down: not at all 7. Trouble concentrating on things, such as reading the newspaper or watching television: not at all 8. Moving or speaking so slowly that other people could have noticed. Or the opposite - being so fidgety or restless that you have been moving around a lot more than usual: not at all 9. Thoughts that you would be better off or of hurting yourself in some way: not at all Total score: 2 Depression Screening Interpretation: Negative Depression Screening Done: Yes 70743 - PHQ-9 Billing: Yes Source: Developed by Drs. Valeriy Hubbard, Dafne Clifford, Juan Henderson and colleagues, with an educational jeremiah from [employer]. Thrive Questionnaire Date Thrive assessed: 01/10/25 I am a: Patient What is your living situation today?: I have a steady place to live Within the past 12 months, did the food you bought not last and you didn't have the money to get more?: Never true Within the past 12 months, did you worry whether your food would run out before you got money to buy more?: Never true Do you have trouble paying for medicines?: No Do you have trouble getting transportation to medical appointments?: No Do you have trouble paying your heating and electricity bill?: No Do you have trouble taking care of your child, family member or friend?: No Do you have trouble with day-to-day activities such as bathing, preparing meals, shopping, managing finances, etc.?: No Are you currently unemployed and looking for a job?: No Are you interested in more education?: No Please select the resources that you would like help with: None Currently or been in a relationship where the following occur: No concerns reported THRIVE Score: 0 AUDIT C Alcohol Use Questionnaire (AUDIT-C) 1. How often do you have a drink containing alcohol?: 2-4 times a month 2. How many drinks containing alcohol do you have on a typical day when you are drinking?: 1 or 2 3. How often do you have six or more drinks on one occasion?: Never Total Score: 2 Score Reviewed/Action Taken: Yes CHRISTIANO-7 AMB Questionnaire CHRISTIANO-7 Date CHRISTIANO - 7 assessed: 01/10/25 Feeling nervous, anxious, or on edge: 0 = Not at all Not being able to stop or control worryin = Not at all Worrying too much about different things: 0 = Not at all Trouble relaxin = Not at all Being so restless that it is hard to sit still: 0 = Not at all Becoming easily annoyed or irritable: 0 = Not at all Feeling afraid as if something awful might happen: 0 = Not at all Total CHRISTIANO-7 score (0-4 normal; 5-9 mild; 10-14 moderate; 15-21 severe): 0 Source: Developed by Drs. Valeriy Hubbard, Dafne Clifford, Juan Henderson and colleagues, with an educational jeremiah from [employer]. CHRISTIANO-7 Assessment Billing CHRISTIANO-7 Assessment Tool: CHRISTIANO-7 Assessment 06042 Review of Systems Const Denies chills, Denies fatigue, Denies fever(s), Denies headache(s) and Denies weakness Eyes Denies change in vision ENT Denies dizziness, Denies headache(s), Denies hearing loss, Denies nasal congestion, Denies sinus pain, Denies sinus pressure and Denies sore throat Card Denies chest pain, Denies lightheadedness, Reports dyspnea and Denies other (palpitations) Resp Denies cough, Reports dyspnea and Denies wheezing GI Reports abdominal pain, Denies melena, Denies hematochezia, Denies change in bowel habits, Denies dyspepsia and Denies nausea Denies hematuria and Denies dysuria Musc Denies abnormal gait, Denies myalgias, Denies arthralgias, Denies numbness and Denies tingling Skin/Breast Denies rash, Denies unusual bruising and Denies wounds Neuro Denies abnormal gait, Denies dizziness, Denies headache(s), Denies memory loss, Denies numbness, Denies Sensory deficit (Neuro), Denies tingling and Denies weakness Psych Denies anxiety, Denies depression and Denies memory loss Endo Denies cold intolerance, Denies fatigue, Denies heat intolerance, Denies polydipsia and Denies polyuria Julien/Lymph Denies easy bleeding and Denies easy bruising Aller/Immun Denies wheezing Physical exam (Primary Care) Vital Signs: Last Vital Signs Temp 99.8 F 01/10/25 14:10 Pulse 106 H 01/10/25 14:10 Resp 16 01/10/25 14:10 BP 167/87 H 01/10/25 14:38 Pulse Ox 96 01/10/25 14:10 Oxygen Delivery Method Room Air 01/10/25 14:10 BMI result Body Mass Index 39.0 Tobacco/Smoking Status: Tobacco use Status Tobacco use date assessed 01/10/25 01/10/25 14:16 Patient Tobacco Use Status Never used Tobacco 01/10/25 14:08 e-Cigarette/Vaping Use Never Used 01/10/25 14:08 PHQ-9: PHQ-9 Score PHQ-9: Total score 2 01/10/25 15:09 Depression Screening Interpretation: Negative Thrive Assessment: Date of Thrive Assessment Date Thrive assessed 01/10/25 01/10/25 14:19 Currently or been in a relationship where the following occur: No concerns reported Const General: no acute distress, well developed, alert and awake Nutritional Appearance: well nourished Orientation/consciousness: patient oriented x3 HENMT Head: Yes normocephalic and Yes atraumatic Ears: hearing grossly normal bilaterally and TM's normal bilaterally General nose exam: Normal external nose present and Normal nares present Mouth: Normal oral and palatal mucosa present and moist mucous membranes Teeth and gingiva: dentition normal Throat: Yes posterior oropharynx normal Eyes Pupils: Equal, round and reactive pupils present and Pupil accommodation reflex normal EOM: EOMs intact bilaterally Neck Neck: Yes normal visual inspection, Yes no lymphadenopathy and Yes trachea midline Thyroid: Thyroid normal Carotids: no bruits Lymphatic: no lymphadenopathy noted Chest Chest palpation & inspection: normal inspection of the chest Resp Effort & Inspection: normal respiratory effort Auscultation: clear to auscultation bilaterally Cardio Rate: regular rate Rhythm: regular rhythm Heart sounds: S1 normal heart sound present, S2 normal heart sound present, no gallops, no murmurs and no rubs Bruits: no abdominal aortic bruits and no carotid bruits GI Palpation (GI): No Abdominal aortic bruit present, Soft to palpation, nontender, No hepatosplenomegaly present and No Rebound tenderness present Auscultation: normal bowel sounds General: Yes no CVA tenderness Back/Spine/Pelvis Back: no CVA tenderness Cervical Spine: cervical ROM normal and No Cervical spine tenderness Thoracic/Lumbar Spine: thoraco-lumbar ROM normal, No pain with thoraco-lumbar ROM, No thoracic spinal tenderness and No lumbar spinal tenderness Skin Lesions: no lesions Rashes: no rashes Trauma: no lacerations or abrasions Wounds: no wounds Nails: normal Neuro General: patient oriented x3, gait normal and CN's II-XI intact bilaterally Cranial nerves: Yes Equal, round and reactive pupils present Cognition (Neuro): normal cognition Gait exam (Neuro): Normal gait present Motor exam (neuro): 5/5 motor strength present throughout Sensory Exam: No Sensory deficit (Neuro) Deep tendon reflexes (DTR's): Right patellar reflex intensity grade: 2+ and Left patellar reflex intensity grade: 2+ Extrem General: Yes normal to inspection and No edema Psych Appearance: grossly normal Affect: No normal affect and Labile affect present Attitude: cooperative Thought process: Normal thought process present Coding Level of Care Code Est Pt Level 4 (50328) Est Pt Prev Care 40-64y(86113) Diagnoses Dyspnea R06.00 Elevated blood pressure reading R03.0 Hyperlipidemia E78.5 Lower abdominal pain R10.30 Additional Codes CHRISTIANO-7 Assessment Billing - CHRISTIANO-7 Assessment Tool: CHRISTIANO-7 Assessment 12068 ([id number]) PHQ-9 - 88062 - PHQ-9 Billing: Yes ([id number]) Assessment & Plan Assessment & Plan (1) Dyspnea: Code(s): R06.00 - Dyspnea, unspecified Category: Medical Plan: Ongoing dyspnea. She notes history of murmur and does have elevated blood pressure today. EKG shows normal sinus rhythm with normal axis, no hypertrophy and no ST-T-wave changes. Faint 2/6 systolic murmur. She says she has not had an echocardiogram in 30 years. Will check echocardiogram If negative will consider PFTs and pulmonary workup as she also continues to get recurrent respiratory infections. Had filled out [facility] paperwork for her to enable intermittent leave and I renewed this today. (2) Elevated blood pressure reading: Code(s): R03.0 - Elevated blood-pressure reading, without diagnosis of hypertension Category: Medical Plan: Blood pressure readings today are very high. Patient says this is due to pain. Had a very long discussion patient. She says that she checks her blood pressures at home and they are normal at home. 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 She says it is only high when she comes in the doctor's office and when she is in pain. Had asked her at her last visit to bring in log of his blood pressures. She has not done that today but will do so for our next visit. Discussed with patient that I am concerned about her blood pressures but who accept a log of her blood pressures from home - conversation had gotten rather confrontational but we were able to bring them attention after EKG which was essentially normal. (3) Hyperlipidemia: Code(s): E78.5 - Hyperlipidemia, unspecified Category: Medical Plan: Patient adamantly refuses medication for hyperlipidemia. We discussed dietary changes Briefly discussed there are non statin medications but she declines all medications She says she has tried red yeast rice with success in the past and she can try this again Will continue to monitor lipids (4) Lower abdominal pain: Comment: Code(s): R10.30 - Lower abdominal pain, unspecified Category: Medical Plan: Ongoing abdominal pain for months. Differential diagnosis includes but not limited to diverticulitis, nephrolithiasis, appendicitis, acute urinary retention, cystitis, infectious colitis, ovarian cysts, pelvic inflammatory disease, pelvic abscess, abdominal aortic aneurysm, hernia, abdominal wall hematoma, abdominal wall infection, muscular strain, herpes zoster or malignancy. Offerred get CT abdomen pelvis but pt declines - not so bad now Hydrate & Soluble fiber Referral to Gastroenterology - declined for now Plan Discussed with patient that high cholesterol and high blood pressure are significant risk factors for heart attacks and strokes. Patient does not feel that her cholesterol levels are high. Patient says that her blood pressures at home are fine and declines other medications at this time. She agrees to bring in a log of her blood pressures as we discussed at her last visit. Orders: Orders Complete Blood Count Auto Diff Today Z00.00 - Encounter for general adult medical examination without abnormal findings Lipid Panel Today Z00.00 - Encounter for general adult medical examination without abnormal findings Microalbumin, Random (w Creat) Today I10 - Essential (primary) hypertension TSH reflex Free T4 Today Z00.00 - Encounter for general adult medical examination without abnormal findings Erythrocyte Sedimentation Rate Today R06.00 - Dyspnea, unspecified CRP High Sensitivity Today R06.00 - Dyspnea, unspecified AMB EKG-In Office Today R03.0 - Elevated blood-pressure reading, without diagnosis of hypertension CA echo transthoracic complete Today R01.1 - Cardiac murmur, unspecified, R03.0 - Elevated blood-pressure reading, without diagnosis of hypertension, R06.00 - Dyspnea, unspecified Comprehensive [place]. Panel Fast Today Z00.00 - Encounter for general adult medical examination without abnormal findings UA CC w/rflx Micro + Cult Today Z00.00 - Encounter for general adult medical examination without abnormal findings ELMA Reflex Titer and Pattern Today R06.00 - Dyspnea, unspecified Ova and Parasite Today R10.30 - Lower abdominal pain, unspecified Referrals [facility] Referral R10.30 - Lower abdominal pain, unspecified, Z12.4 - Encounter for screening for malignant neoplasm of cervix
[2025-01-10 14:10] VITALS: BP 175/85; PULSE 106; RESP 16; TEMP 37.7; O2SAT 96; BMI 39.0
[2025-01-10 14:38] VITALS: BP 167/87
== END 2025-01-10 16:45 | disposition home or self-care (01) ==
LOC: HO.HMCFM 14:00
PROVIDERS: PCP Family Medicine; Visit Provider Family Medicine
DX: Z00.00 Encounter for general adult medical examination without abnormal findings (principal); R06.00 Dyspnea, unspecified; R03.0 Elevated blood-pressure reading, without diagnosis of hypertension; E78.5 Hyperlipidemia, unspecified; R10.30 Lower abdominal pain, unspecified

== ENCOUNTER → 2025-01-10 13:59 | Outpatient (BNVA) | payer OTHER, SELFPAY | PROVIDERS: PCP Family Medicine; Visit Provider Family Medicine | DX: R03.0 Elevated blood-pressure reading, without diagnosis of hypertension (principal); R06.00 Dyspnea, unspecified; R10.9 Unspecified abdominal pain; E78.5 Hyperlipidemia, unspecified; R10.30 Lower abdominal pain, unspecified | CPT/HCPCS: 93005; 96127 ==

== ENCOUNTER 2025-02-01 08:39 | Outpatient (REF) | payer OTHER, SELFPAY ==
[2025-02-01 09:52] LABS: MANUAL DIFF FLAG NO
[2025-02-01 09:58] LABS: Hematocrit 44.2 % (37.0-47.0); Hemoglobin 14.6 g/dl (12.0-16.0); Imm Gran Abs Auto 0.03 X10*3/uL (0.00-0.03); Imm Gran Pct Auto 0.4 % (0.0-0.4); Lymphocytes Absolute Auto 3.1 X10*3/uL (1.2-4.9); Mean Corpuscular HGB Conc 33.0 g/dl (31.0-35.0); Mean Corpuscular Hemoglobin 29.7 pg (27.0-33.0); Mean Corpuscular Volume 89.8 fL (80.0-98.0); NRBC Abs Auto 0.000 X10*3/uL (0.0-0.012); NRBC Pct Auto 0.0 /100WBC (0.0-0.2); Platelet Count 302 X10*3/uL (160-400); Red Blood Count 4.92 X10*6/uL (4.20-5.50); White Blood Count 7.9 X10*3/uL (4.8-10.8)
[2025-02-01 10:18] LABS: Alanine Aminotransferase 33 U/L (0-31); Albumin Level 4.6 g/dL (3.5-5.0); Alkaline Phosphatase 52 U/L (39-117); Anion Gap 11 (12-20); Aspartate Amino Transferase 25 U/L (5-31); Blood Urea Nitrogen 16 mg/dL (9-16); Calcium 9.1 mg/dL (8.4-10.2); Carbon Dioxide 29 mmol/L (22-29); Chloride 104 mmol/L (96-108); Cholesterol 232 mg/dL (<200); Estimated Glomerular Filt Rate > 60; HDL Cholesterol 58 mg/dL (>40); Potassium 3.8 mmol/L (3.3-5.1); Sodium 140 mmol/L (135-145); Total Protein 8.1 g/dL (6.5-8.0); Triglycerides 107 mg/dL (<150)
[2025-02-01 11:38] LABS: Appearance Urine Clear; Glucose Urine UA Negative (Negative); PH 6.0 (5.0-9.0); Specific Gravity - Urine 1.020 (1.005-1.025); UMIC TRIGGER UACC YES
[2025-02-01 12:10] LABS: Microalbum/Creatinine Ratio Ur 10.5 ug/mg cr (<30)
[2025-02-02 10:44] LABS: Anti Nuclear Antibody Screen NEGATIVE (NEGATIVE)
[2025-02-06 03:08] LABS: TS Negative Control Passed; TS Panel A 0; TS Panel B 0; TS Positive Control Passed; TSpotTB Negative (Negative)
== END 2025-02-01 08:40 | disposition home or self-care (01) ==
LOC: HO.10HDL 08:39
PROVIDERS: Visit Provider Family Medicine
DX: Z00.00 Encounter for general adult medical examination without abnormal findings (principal); Z11.1 Encounter for screening for respiratory tuberculosis; R06.00 Dyspnea, unspecified; I10 Essential (primary) hypertension
CPT/HCPCS: 36415; 80053; 80061; 81001; 82043; 82570; 84443; 85025; 85652; 86038; 86141; 86481

== ENCOUNTER → 2025-03-06 14:59 | Outpatient (REF) | payer OTHER, SELFPAY ==
--- NOTE | 2025-03-06 15:01 | CA_ITS ---
Transthoracic Echocardiogram Patient (Last, First, Middle): Tisha Tesfaye, Gender: F Date of : 1960 Age: 64 Procedure Date: 03/06/2025 Procedure Type: Transthoracic Echocardiogram Location: OP Height: 160.02 cm Weight: 95.26 kg BSA: 1.97 m2 Heart Rate: bpm BP: 130 / 80 mmHg Policy Writer Typist: KARISHMA/JOSHUA Referring MD: Leoncio Meyer MD Parts Driver: Maury Gongora MD Symptoms: R03.0 - Elevated blood-pressure reading, without diagnosis of hypertension Study Quality: Adequate ECG Rhythm: Sinus Conclusions: - 1. Normal LV ejection fraction of 60 65% with impaired relaxation filling pattern 2. Normal cardiac valvular Dopplers 3. Normal RV systolic pressure 4. No gross pericardial effusion Findings Left Ventricle Normal left ventricular size, thickness, and systolic function. The visually estimated ejection fraction is between 60-65%. Spectral Doppler is indicative of an impaired relaxation filling pattern. Right Ventricle Normal right ventricular cavity size and systolic function. Atria The left atrium is normal in size. There is lipomatous hypertrophy of the interatrial septum. There is no evidence of interatrial shunt. The right atrium is normal in size. Aortic Valve Normal aortic valve structure and function. There is no aortic valve stenosis. There is no aortic valve regurgitation. Mitral Valve Normal mitral valve structure and function. There is trace mitral valve regurgitation. There is no mitral valve stenosis. Pulmonic Valve The pulmonic valve is likely normal. Tricuspid Valve Normal tricuspid valve structure. There is trace tricuspid valve regurgitation. The right ventricular systolic pressure is normal. The right ventricular systolic pressure is 29 mmHg. Normal right atrial pressure. There is no evidence of pulmonary hypertension. Great Vessels All visible segments of the aorta are normal in size. The pulmonary artery was not well visualized. There is no dilatation of the ascending aorta measuring 3.00 cm. Venous The inferior vena cava is normal in size and collapses greater than 50% with inspiration. Pericardium/Pleural There is no evidence of pericardial effusion. Prior Study Comparison No prior study available for comparison. Measurements 2D Linear Measurements IVSd: 0.94 0.6-0.9/0.6-1.0 cm LVIDd: 4.91 3.9-5.3/4.2-5.9 cm LVIDd Index: 2.49 2.4-3.2/2.2-3.1 cm/m2 LVIDs: 3.21 2.0-3.6 cm LVPWd: 0.98 0.7-1.1 cm LA Diam: 4.40 2.7-3.8/3.0-4.0 cm LAIDs Index: 2.23 1.5-2.3 cm/m2 LV Mass: 208.69 67-162/88-224 g LV Mass Index: 105.93 43-95/49-115 g/m2 LVOT Diam: 2.00 3.0+(-)1.3 cm 2D Systolic Function EF 4C: 62.00 >55% EF 2C: 62.00 >55% EF BiP: 61.90 >55% Mitral Valve MV Pk E: 0.91 MV PK A: 0.96 MV Decel Time: 189.00 E/A: 1.00 E'Lateral: 5.00 E'Medial: 5.33 E/E' Med: 17.10 E/E' Lat: 18.20 PHT: 55.00 MVA PHT: 4.00 Decel [place]: 4.82 Aortic Valve AoV Pk Wolf: 1.88 AoV Mn Wolf: 1.30 AoV VTI: 0.38 AoV Pk Grad: 14.00 Aov Mn Grad: 7.00 BRAIN Cont.VTI: 2.08 LVOT LVOT Pk Wolf: 1.34 LVOT Mn Wolf: 0.90 LVOT VTI: 0.25 LVOT Pk Grad: 7.00 LVOT Mn Grad: 4.00 LVOT Diam: 2.00 LVOT Area: 3.14 Diastolic Function MV Pk E: 0.91 MV Pk A: 0.96 E/A: 1.00 E'Medial: 5.33 E/E' Med: 17.10 E' Laterial: 5.00 E/E' Lat: 18.20 Right Ventricle TAPSE (mm): 23.50 TVS' Wolf: 16.80 Tricuspid Valve TR Pk Wolf: 2.57 TR Pk Grad: 26.00 RA Press: 3.00 RVSP: 29.00 Great Vessels Aorta Sinus of Valsalva: 2.70 2.0-3.5 cm Ao Asc: 3.00 2.1-3.4 cm Ao Arch: 2.80 Pulmonary Veins Pulm Vein S/D 1.40 Pulmonary Valve PV Pk Wolf: 1.73 Peak PV Grad: 12.00 Updated in Other Vendor System with Status of Final Maury Gongora MD electronically signed on 03/06/2025 4:58:06 PM with status of Final
--- OUTSIDE RECORDS SUMMARY | 2025-03-06 20:09 | XMS_ITS | Data Portability ---
Author Organization [facility]IN [facility], [address] Address [address] [place] [address] Assessment No assessment recorded. Plan of Treatment Reminders Order Date Submit Date Provider Last Modified By Organization Details Last Modified Time Details Appointments None recorded. Lab rapid strep group A, throat 2023 [email or web address] _[facility], [address] [place], [address], 10:41:16 streptococc us group A, culture, throat 2023 024 [place] [facility], [address] [place] [address], [place], [address], 08:08:30 Referral None recorded. Procedures None recorded. Surgeries None recorded. Imaging None recorded. Medication Orders Augmentin 875 mg-125 mg tablet 2023 024 [facility] #[id number], [address] [place], [address], 10:41:16 albuterol sulfate HFA 90 mcg/actuati on aerosol inhaler 2023 024 [facility] #[id number], [address] [place], [address], 10:41:16 Patient TargetsNo targets recorded. Patient Instructions Encounter Date Encounter Id Patient Instructions Last Modified By Organization Details Last Modified Time 09/18/2023 [id number] upper respirator y infection (cold): care instructions [email or web address] Not available 09/18/2023 10:41:14 Reason for Referral None Reported. Results Created Date Observation Date Name Description Value Unit Range Abnormal Flag Note LastModifiedBy Organization Detail LastModifiedTime 09/18/19 24 09/21/2023 BETA STREP GP A CULTU RE beta strep gp A culture NEGATI VE Refer ence Range : Negat adriano Not Available [facility] ([facility]) [address] [facility], [place], [address], 09/21/2023 08:08:30 09/18/19 24 09/18/2023 rapid strep group A, throa t Unknown Analyte negati ve Not Available [id number] [place] [address] [place] [address], [address], 09/18/2023 10:02:31 09/18/19 24 09/18/2023 rapid strep group A, throa t Unknown Analyte negati ve Not Available [address] [place] [address] [place] [address], [address], 09/18/2023 10:02:31 09/18/19 24 09/18/2023 rapid strep group A, throa t Unknown Analyte yes Not Available [facility] [address] [place] [address], [address], 09/18/2023 10:02:31 Result Notes None recorded. Problems Name Problem SNOMED Code Status Onset Date Resolution Date Notes Provider Name and Address Organization Details Recorded Time Acute upper respiratory infection 29666936 Active Alin Evans NP [facility]ly [facility] [place], [address] , [place] - [facility] 10:39:27 Problem Notes None recorded. Medical Equipment None Reported. Allergies Allergen ID Allergen Name Allergen Category Reaction Reaction Severity Criticality Documentation Date Start Date Code Code System Note Provider Name and Address Organization Details Recorded Time 992564 polyethyl agustina glycols medicatio n Not available Not available Not available 09/18/2023 8516 RxNorm DEVIN Rawls [facility] 10:01:15 120599 red dye food,medi cation Not available Not available Not available 09/18/2023 DEVIN Rawls [facility] 10:01:24 Medications Name Sig Start Date [...] in Arterial blood by Pulse oximetry Systolic And Diastolic Provider Name and Address Organization Details Last Updated DateTime 4 18 /min 160.02 cm 38.1 kg/m2 05139.3 6 g 99.6 [degF] 88 /min 98 % 98 % 137/83 mm[Hg] Melissa [facility] 4 10:03:39 Social History Question Answer Notes LastModified by Organizat ion Details LastModified Time Tobacco Smoking Status Never Smoker DEVIN Rawls - [facility] 09/18/2023 10:02:10 Have You Had A Flu Shot This [...] Tobacco Screening? 09/18/2023 Information not available 09/18/2023 Have You Recently Traveled Abroad? No Information not available 09/18/2023 Sex: Unknown Functional Status Question Answer Note LastModified by I[employer] Details LastModified Time Do you use any illicit or recreational drugs? No Information not available 09/18/2023 Do you or have you ever used any other forms of tobacco or nicotine? No Information not available 09/18/2023 What is your level of alcohol consumption? Occasional Information not available 09/18/2023 Mental Status None recorded. Family History Relationship [...] Diagnosis SNOMED-CT Code Diagnosis ICD10 Code Diagnosis IMO Codes Diagnosis Note [id number] 2099_[facility] [address] [address] 07/08/2017 13:26:14 07/08/2017 15:43:58 [id number] 2099_[facility] [address] [address] 03/27/2015 12:52:18 03/27/2015 15:27:[id number] [place] [address] [address] [place] [address] 03/01/2015 16:34:46 03/01/2015 17:27:[id number] [place] [address] [address] [place] [phone] 06/15/2016 12:16:39 06/15/2016 13:26:[id number] [place] [address] [address] [place] [address] 06/27/2016 16:00:07 06/27/2016 16:37:[id number] [place] [address] [address] [place] [address] 10/16/2016 16:18:21 10/16/2016 17:22:[id number] [place] [address] [facility] [address] [place] [address] 09/08/2015 08:43:49 09/08/2015 09:41:[id number] [place] [address] [address] [place] [address] 05/15/2018 11:15:52 05/15/2018 12:24:38 [id number] [place] [address] [address] [place] [phone] 09/18/2023 09:48:16 09/18/2023 10:47:01 Acute upper respiratory infection [id number] J06.9 Based on your Presentati on, Exam, [...] . Severe Headache Thank you for using [employer] today, please feel free to contact our [...] Name 09/23/2023 1 [employer] [place] (EPO) [id number] [facility] [id number] [facility] 09/18/2023 1 MANDY[employer]GR[employer]EL[employer] (PPO) [id number] Tisha Ross [id number] [facility] 09/23/2023 1 [employer] (PPO) [id number] [facility] [id number] [facility] Notes Date Note Type Note Provider Name and Address Organization Details Recorded Time 05/04/202 4 text/html Sore throatReported by PatientSore ThroatFor associated symptoms, patient reportsshortness of breath,__ congestion, andsinus pain/ congestionbut reportsno cough,no sputum production,no vomiting,no nausea, andno hoarseness. For context, patient reportssick contactbut reportsno foreign travelandnon-smoker. For source of patient information, patient reportsinformation obtained from patientandpatient arrived at urgent care ambulatory. For location, patient reportsthroat. For severity, patient reportsmoderate. For quality, patient reportsdullandhurts to swallow. For onset/timing, patient reports1 weeks. For modifying factors, patient reportsotc medication no relief*. patient comes in for sore throat, congestion, SOB x1 week-flu A 1.5 month ago, hasn't felt normal since, now feels like its turning into bronchitis Yvonne Evans, WAND[place] [address] [place], [address], [place] - [facility] 09/18/2023 10:46:01 OBGyn Episode No OBEpisode recorded.
== END ==
LOC: HO.CARD 14:59
PROVIDERS: PCP Family Medicine; Visit Provider Family Medicine
DX: R03.0 Elevated blood-pressure reading, without diagnosis of hypertension (principal); R01.1 Cardiac murmur, unspecified; R06.00 Dyspnea, unspecified
CPT/HCPCS: 93306

== ENCOUNTER → 2025-03-06 15:01 | Outpatient (BNV) | payer OTHER, SELFPAY | PROVIDERS: PCP Family Medicine; Visit Provider Internal Medicine Cardiovascular Disease | DX: I51.89 Other ill-defined heart diseases (principal); R03.0 Elevated blood-pressure reading, without diagnosis of hypertension | CPT/HCPCS: 93306 ==

== ENCOUNTER 2025-05-02 14:40 | Outpatient (AMB) | payer OTHER, SELFPAY ==
--- NOTE | 2025-05-02 14:46 | A.OFFPC_ITS ---
Vital Signs 05/02/25 14:53 Height 5 ft 3 in Weight 222 lb 2 oz BMI 39.3 Position Sitting Respiration 16 Pulse 119 H Pulse Source Pulse Oximeter Temp 99 F Temp Source Temporal Artery Scan Pulse Oximetry (%) 97 Oxygen Delivery Method Room Air Intake Visit Reasons: follow up Intake Note: Tisha presents in the office today for a follow up to hypertension, pulmonary concerns and other chronic conditions. Environmental Aid Required: No Is last menstrual period known: No Post menopausal: Yes Patient : No Allergies metronidazole (Flagyl) Allergy (Unknown, Verified 05/02/25 14:53) Hives polyethylene glycol Allergy (Unknown, Verified 05/02/25 14:53) Unknown Quinolones Allergy (Unknown, Verified 05/02/25 14:53) Muscle cramps perflutren Adverse Reaction (Unknown, Verified 05/02/25 14:53) Unknown Medication List - Last Reconciled 05/02/25 by Leoncio Meyer MD multivitamin with iron (Daily Multiple Vitamins with Iron tablet) 1 tab PO DAILY Tobacco use date assessed: 05/02/25 Dental Screening Dental Screen Date: 05/02/25 Did you have a dental visit in the last 12 months?: Yes Did you have a dental problem in the last 6 months where you did not have access to dental care?: No Was dental information given to patient?: Patient has dentist HPI follow up HPI Details 64 y/o female presents to f/u dyspnea wi th echocardiogram, blood pressure, labs. Echocardiogram 03/06/25 showed: - 1. Normal LV ejection fraction of 60 65% with impaired relaxation filling pattern 2. Normal cardiac valvular Dopplers 3. Normal RV systolic pressure 4. No gross pericardial effusion Labs drawn 02/01/25. Reviewed labs with pt. Triglycerides 107. TC 232. LDL 153. HDL 58. ALT 33. AST 25. Systolic Blood pressure have been in the 120s 130s. She reports anxiety. PFSH Medical History Eczema Diverticulitis Heart murmur, systolic Surgical History History of lymph node dissection of right axilla History of tonsillectomy Family History Maternal Grandmother Diabetes Father Stroke (cerebrum) Mother Breast cancer Social History (Updated 05/02/25 @ 14:53 by Carla Riggs [facility]) Housing: House Alcohol intake: current Patient Tobacco Use Status: Never used Tobacco e-Cigarette/Vaping Use: Never Used Second Hand Smoke Exposure: No service: Yes Current occupational status: employed Current occupation: [employer] Current occupational exposures/hazards: No Cognitive needs: No Hearing needs: No Vision needs: No Questionnaire Thrive Questionnaire Date Thrive assessed: 08/31/24 I am a: Patient What is your living situation today?: I have a steady place to live Within the past 12 months, did the food you bought not last and you didn't have the money to get more?: Often true Within the past 12 months, did you worry whether your food would run out before you got money to buy more?: Never true Do you have trouble paying for medicines?: No Do you have trouble getting transportation to medical appointments?: No Do you have trouble paying your heating and electricity bill?: No Do you have trouble taking care of your child, family member or friend?: No Do you have trouble with day-to-day activities such as bathing, preparing meals, shopping, managing finances, etc.?: No Are you currently unemployed and looking for a job?: No Are you interested in more education?: No Please select the resources that you would like help with: None Currently or been in a relationship where the following occur: No concerns reported THRIVE Score: 1 CHRISTIANO-7 AMB Questionnaire CHRISTIANO-7 Date CHRISTIANO - 7 assessed: 01/10/25 Source: Developed by Drs. Valeriy Hubbard, Dafne Clifford, Juan Henderson and colleagues, with an educational jeremiah from [employer]. Review of Systems Const Denies chills, Denies fatigue, Denies fever(s), Denies headache(s) and Denies weakness ENT Denies dizziness and Denies headache(s) Card Denies dyspnea Resp Denies cough, Denies dyspnea, Denies wheezing and Denies other (shortness of breath) Musc Denies numbness and Denies tingling Neuro Denies dizziness, Denies headache(s), Denies numbness, Denies tingling and Denies weakness Psych Reports anxiety and Denies depression Endo Denies fatigue Aller/Immun Denies wheezing Physical exam (Primary Care) Vital Signs: Last Vital Signs Temp 99 F 05/02/25 14:53 Pulse 119 H 05/02/25 14:53 Resp 16 05/02/25 14:53 Pulse Ox 97 05/02/25 14:53 Oxygen Delivery Method Room Air 05/02/25 14:53 BMI result Body Mass Index 39.3 Tobacco/Smoking Status: Tobacco use Status Tobacco use date assessed 05/02/25 05/02/25 14:56 Patient Tobacco Use Status Never used Tobacco 05/02/25 14:53 e-Cigarette/Vaping Use Never Used 05/02/25 14:53 Thrive Assessment: Date of Thrive Assessment Date Thrive assessed 08/31/24 05/02/25 14:48 Currently or been in a relationship where the following occur: No concerns reported Const General: well developed; No acute distress Nutritional Appearance: well nourished Orientation/consciousness: patient oriented x3 HENMT Head: Yes normocephalic and Yes atraumatic Eyes General: appearance normal, both eyes and all related structures Pupils: Equal, round and reactive pupils present EOM: EOMs intact bilaterally Resp Other: Fine crackles Effort & Inspection: normal respiratory effort Auscultation: clear to auscultation bilaterally Cardio Rate: regular rate Rhythm: regular rhythm Heart sounds: Murmur heart sound present Neuro General: patient oriented x3 and gait normal Cranial nerves: Yes Equal, round and reactive pupils present Psych Affect: normal affect Coding Level of Care Code Est Pt Level 5 (92636) Diagnoses Dyspnea R06.00 Elevated blood pressure reading R03.0 Diastolic dysfunction I51.89 Anxiety F41.9 Hyperlipidemia E78.5 Assessment & Plan Assessment & Plan (1) Dyspnea: Code(s): R06.00 - Dyspnea, unspecified Category: Medical Plan: Ongoing dyspnea Lungs essentially clear. Fine crackles at right base not heard at prior exam. Echocardiogram shows diastolic dysfunction. Blood pressure was significantly elevated at last visit. Patient declined blood pressure check today. Unclear what underlying primary issue is. May have pulmonary hypertension or may have diastolic dysfunction secondary to longstanding hypertension Referring her to Cardiology. Checking pulmonary function testing and refer her to pulmonology as well at patient request. (2) Elevated blood pressure reading: Code(s): R03.0 - Elevated blood-pressure reading, without diagnosis of hypertension Category: Medical Plan: Blood pressure was significantly elevated at her last check. Declined to get it checked today but shows me blood pressures from home that are in elevated/prehypertensive range. Patient does agree to trial propranolol as she says this could also help with her anxiety. Will have her trial propranolol and I cautioned her that if she has any wheezing she should discontinue it. (3) Diastolic dysfunction: Code(s): I51.89 - Other ill-defined heart diseases Category: Medical Plan: As above Referred to Cardiology (4) Anxiety: Code(s): F41.9 - Anxiety disorder, unspecified Category: Medical Plan: Patient would like to try propranolol Also agrees to a referral to the nurse navigator to connect her with a therapist (5) Hyperlipidemia: Code(s): E78.5 - Hyperlipidemia, unspecified Category: Medical Plan: Discussed that her cholesterol levels are high. Patient aware. Declines any medication Work on diet low in saturated fats and cholesterol Plan FMLA paperwork filled out from November 09 2024 x1 year Intermittent leave for 3-4 times per month and 1-2 days per episode Unable to present to work when she has flare-up of dyspnea and fatigue. Orders: Orders H pylori Ag Stool 05/02/25 R10.9 - Unspecified abdominal pain Hepatitis B,C Profile 05/02/25 R10.9 - Unspecified abdominal pain, Z11.3 - Encounter for screening for infections with a predominantly sexual mode of transmission PFT pulmonary function test 05/02/25 R06.00 - Dyspnea, unspecified Referrals Cardiology Referral I51.89 - Other ill-defined heart diseases, R06.00 - Dyspnea, unspecified Nurse Navigator Referral F41.9 - Anxiety disorder, unspecified Pulmonology Referral R06.00 - Dyspnea, unspecified Medications: New propranolol 10 mg PO BID 60 tabs 1RF 30 days
[2025-05-02 14:53] VITALS: PULSE 119; RESP 16; TEMP 37.2; O2SAT 97; BMI 39.3
--- OUTSIDE RECORDS SUMMARY | 2025-05-02 19:36 | XMS_ITS | Data Portability ---
Author Organization [facility]IN [facility], [address] Address [address] [place] [address] Assessment No assessment recorded. Plan of Treatment Reminders Order Date Submit Date Provider Last Modified By Organization Details Last Modified Time Details Appointments None recorded. Lab rapid strep group A, throat 2023 [email or web address] _[facility], [address] [place], [address], 10:41:16 streptococc us group A, culture, throat 2023 024 [place] [facility], [address] [place] [address], [place], [address], 08:08:30 Referral None recorded. Procedures None recorded. Surgeries None recorded. Imaging None recorded. Medication Orders Augmentin 875 mg-125 mg tablet 2023 024 [facility] #[id number], [address] [place], [address], 10:41:16 albuterol sulfate HFA 90 mcg/actuati on aerosol inhaler 2023 024 [facility] #0838, [address] [place], [address], 10:41:16 Patient TargetsNo targets recorded. Patient Instructions Encounter Date Encounter Id Patient Instructions Last Modified By Organization Details Last Modified Time 09/18/2023 [id number] upper respirator y infection (cold): care instructions [email or web address] Not available 09/18/2023 10:41:14 Reason for Referral None Reported. Results Created Date Observation Date Name Description Value Unit Range Abnormal Flag Note LastModifiedBy Organization Detail LastModifiedTime 09/18/19 24 09/21/2023 BETA STREP GP A CULTU RE beta strep gp A culture NEGATI VE Refer ence Range : Negat adriano Not Available [facility] ([facility]) [address] [facility], [place], [address], 09/21/2023 08:08:30 09/18/19 24 09/18/2023 rapid strep group A, throa t Unknown Analyte negati ve Not Available [address] [place] [address] [place] [address], [phone], 09/18/2023 10:02:31 09/18/19 24 09/18/2023 rapid strep group A, throa t Unknown Analyte negati ve Not Available [address] [place] [address] [address] [place] [address], [address], 09/18/2023 10:02:31 09/18/19 24 09/18/2023 rapid strep group A, throa t Unknown Analyte yes Not Available [facility] [address] [place] [address], [address], 09/18/2023 10:02:31 Result Notes None recorded. Problems Name Problem SNOMED Code Status Onset Date Resolution Date Notes Provider Name and Address Organization Details Recorded Time Acute upper respiratory infection 83736894 Active Alin Evans NP [facility] [place], [address] , [place] - [facility] 10:39:27 Problem Notes None recorded. Medical Equipment None Reported. Allergies Allergen ID Allergen Name Allergen Category Reaction Reaction Severity Criticality Documentation Date Start Date Code Code System Note Provider Name and Address Organization Details Recorded Time 202049 polyethyl agustina glycols medicatio n Not available Not available Not available 09/18/2023 8516 RxNorm DEVIN Rawls [facility] 4 10:01:15 538414 red dye food,medi cation Not available Not available Not available 09/18/2023 DEVIN Rawls [facility] 4 10:01:24 Medications [...] weight Body temperature Heart rate Oxygen saturation Systolic And Diastolic Provider Name and Address Organization Details Last Updated DateTime 4 18 /min 160.02 cm 38.1 kg/m2 18115.3 6 g 99.6 [degF] 88 /min 98 % 137/83 mm[Hg] Melissa Oden [facility] 10:03:39 Social History Question Answer Notes [...] Functional Status Question Answer Note LastModified by Organizat ion Details LastModified Time Do you use any [...] ICD10 Code Diagnosis IMO Codes Diagnosis Note [id number] 20994_[facility] [address] [address] 07/08/2017 13:26:14 07/08/2017 15:43:58 [id number] 20994_[facility] [address] [address] 03/27/2015 12:52:18 03/27/2015 15:27:[id number] [place] [address] [address] [place] [address] 03/01/2015 16:34:46 03/01/2015 17:27:[id number] [place] [address] [address] [place] [address] 06/15/2016 12:16:39 06/15/2016 13:26:[id number] [place] [address] [address] [place] [phone] 06/27/2016 16:00:07 06/27/2016 16:37:[id number] [place] [address] [facility] [address] [place] [phone] 10/16/2016 16:18:21 10/16/2016 17:22:[id number] [place] [address] [address] [place] [phone] 09/08/2015 08:43:49 09/08/2015 09:41:[id number] [place] [address] [address] [place] [phone] 05/15/2018 11:15:52 05/15/2018 12:24:38 [id number] Yvonne Evans [place] [address] [address] [place] [phone] 09/18/2023 09:48:16 09/18/2023 10:47:01 Acute upper respiratory infection 56137848 J06.9 Based on your Presentati on, Exam, [...] . Severe Headache Thank you for using [employer] today, please feel free to contact our [...] 1 [employer] (EPO) [id number] [facility] [id number] [facility] 09/18/2023 1 [employer] (PPO) [id number] Tisha BrunsonMera [id number] [facility] 09/23/2023 1 M[employer]EL[employer] (PPO) [id number] [facility] [id number] 805 [facility] Notes Date Note Type Note Provider Name and Address Organization Details Recorded Time 4 text/html Sore throatReported by PatientSore ThroatFor [...] turning into bronchitis Yvonne Evans NP [address] [place], [address], [place] - [facility] 09/18/2023 10:46:01 OBGyn Episode No OBEpisode recorded.
== END 2025-05-02 15:52 | disposition home or self-care (01) ==
LOC: HO.HMCFM 14:41
PROVIDERS: PCP Family Medicine; Visit Provider Family Medicine
DX: R06.00 Dyspnea, unspecified (principal); R03.0 Elevated blood-pressure reading, without diagnosis of hypertension; I51.89 Other ill-defined heart diseases; F41.9 Anxiety disorder, unspecified; E78.5 Hyperlipidemia, unspecified